=== PATIENT | male | born 1980 | race Caucasian/White ===

== ENCOUNTER 2017-11-08 06:14 | Outpatient (CLI) | payer OTHER ==
[2017-11-08 07:13] LABS: ANION GAP 7 (6-14); BLOOD UREA NITROGEN 13 mg/dL (8-26); CALCIUM 9.4 mg/dL (8.5-10.1); CARBON DIOXIDE 27 mmol/L (21-32); CHLORIDE 105 mmol/L (98-107); GFR 83.2; GLUCOSE 107 mg/dL (70-99); POTASSIUM 4.2 mmol/L (3.5-5.1); SODIUM 139 mmol/L (136-145)
[2017-11-08] MEDS ORDERED: IODIXANOL 320 MG/ML 100 ML VIAL. (07:13)
[2017-11-08] MEDS ORDERED: LIDOCAINE 2% 20 ML VIAL. (07:13)
[2017-11-08 07:28] LABS: HEMATOCRIT 45.3 % (39.0-53.0); HEMOGLOBIN 15.1 g/dL (13.0-17.5); MEAN CORPUSCULAR HEMOGLOBIN 27 pg (25-35); MEAN CORPUSCULAR HGB CONC 33 g/dL (31-37); MEAN CORPUSCULAR VOLUME 80 fL (79-100); PLATELET COUNT 217 x10^3/uL (140-400); RED BLOOD COUNT 5.64 x10^6/uL (4.30-5.70); RED CELL DISTRIBUTION WIDTH 16.4 % (11.5-14.5); WHITE BLOOD COUNT 4.9 x10^3/uL (4.0-11.0)
[2017-11-08 07:47] LABS: INR 1.1 (0.8-1.1)
[2017-11-08] MEDS ORDERED: NITROGLYCERIN 200 MCG/2 ML SYRINGE FOR CATH/VASC LAB. (08:00)
[2017-11-08] MEDS ORDERED: MIDAZOLAM HCL/PF 5 MG/5 ML VIAL. (08:00)
[2017-11-08] MEDS ORDERED: fentaNYL PF VIAL 250 MCG/5 ML VIAL (08:00)
[2017-11-08] MEDS ORDERED: HEPARIN for IV BOLUS 10,000 UNIT/10 ML VIAL. (08:00)
[2017-11-08] MEDS ORDERED: VERAPAMIL 5 MG/2 ML VIAL. (08:00)
[2017-11-08] MEDS: MIDAZOLAM HCL/PF 5 MG/5 ML VIAL. IV (08:51)
[2017-11-08] MEDS: LIDOCAINE 2% 20 ML VIAL. IJ (08:51)
[2017-11-08] MEDS: IODIXANOL 320 MG/ML 100 ML VIAL. IART (08:51)
[2017-11-08] MEDS: NITROGLYCERIN 200 MCG/2 ML SYRINGE FOR CATH/VASC LAB. IART (08:51)
[2017-11-08] MEDS: fentaNYL PF VIAL 250 MCG/5 ML VIAL IV (08:52)
[2017-11-08] MEDS: VERAPAMIL 5 MG/2 ML VIAL. IART (08:52)
[2017-11-08] MEDS: HEPARIN for IV BOLUS 10,000 UNIT/10 ML VIAL. IART (08:53)
[2017-11-08] MEDS ORDERED: IV 1/2 NORMAL SALINE 1,000 ML IV (09:06)
== END 2017-11-08 11:45 | disposition home or self-care (01) ==
LOC: CCL 06:14
DX: I42.9 Cardiomyopathy, unspecified (principal); E78.00 Pure hypercholesterolemia, unspecified; I10 Essential (primary) hypertension; Z79.82 Long term (current) use of aspirin; Z79.899 Other long term (current) drug therapy
CPT/HCPCS: 36415; 80048; 85027; 85610; 93458; 99152; 99153; C1769; C1892; J1644; J2001; J2250; J3010; J3490

== ENCOUNTER → 2017-11-10 | Outpatient (CLI) | payer OTHER ==
[2017-11-08 11:15] VITALS: BP 163/83
[~2017-11-10] MED LIST: ASPI-630 PO; FURO40TA4 PO; LABE200T4 PO; LISI-334 PO
--- NOTE | 2017-11-10 11:41 | RAD ---
MR#: [id number] Date of Study: 11/10/2017 Ordering Physician: VIVIAN ELENA, Referring Physician: VIVIAN ELENA, Tech: Kolton Cheatham MBA, RDMS, RVT, RDCS, RTR APPROVED REPORT Patient Location : OUT-PATIENT Indications venous insufficiency Greater Saphenous Veins (GSV) Significant venous relux noted in the RIGHT GSV at the following levels : Superficial Femoral Junctio n Findings Grayscale images of the bilateral saphenofemoral junctions and limited grayscale images of the greate r and lesser saphenous veins do not reveal any obvious evidence of thrombus. The right great saphenous vein measures 7.5 mm in maximum diameter and has mild reflux with a reflux time of 2.6 seconds. The left great saphenous vein does not show any evidence of reflux and measures approximately 8 mm. The bilateral lesser saphenous veins do not show any evidence of reflux. Critical Notification Critical Value: No <Conclusion> Positive for reflux in the right great saphenous vein at 2.6 seconds. Otherwise unremarkable Signed by : Gennaro Bah, Electronically Approved : 11/10/2017 11:40:29
--- NOTE | 2017-11-10 11:43 | RAD ---
MR#: [id number] Date of Study: 11/10/2017 Ordering Physician: VIVIAN ELENA, Referring Physician: VIVIAN ELENA, Tech: Kolton Cheatham MBA, RDMS, RVT, RDCS, RTR APPROVED REPORT Bilateral Lower Extremity Venous Study for DVT Patient Location: OUT-PATIENT Indications venous insufficiency Vein Imaging (Right) CFV (R): Compressible SFJ (R): Compressible FEM (R): Compressible POP (R): Compressible DFV (R): Compressible PTV (R): Spontaneous GSV (R): Spontaneous Peroneals (R): Spontaneous Vein Imaging (Left) CFV (L): Compressible SFJ (L): Compressible, Compressible FEM (L): Compressible POP (L): Compressible DFV (L): Compressible PTV (L): Spontaneous GSV (L): Spontaneous Peroneals (L): Spontaneous Doppler Evaluation (Right) CFV (R): Spontaneous POP (R):Spontaneous Doppler Evaluation (Left) CFV (L):Spontaneous POP (L):Spontaneous Findings The bilateral lower extremity deep veins were evaluated for thrombus with color Doppler, spectral and grayscale images. On the right the grayscale images of the common femoral, superficial femoral and popliteal veins do n ot demonstrate any evidence of thrombus and these veins appear to be compressible. The below-knee vei ns were not well visualized but grossly appear to be compressible. Spectral imaging and color Doppler do not reveal any evidence of obstruction to flow with normal respirophasic variation above the knee . Below the knee there is spontaneous flow noted. On the left, the grayscale images of the common femoral, superficial femoral and popliteal veins do n ot demonstrate any evidence of thrombus and these veins appear to be compressible. The below-knee vei ns again were not well visualized but grossly appear to be compressible. Spectral imaging and color D oppler do not reveal any evidence of obstruction to flow with normal respirophasic variation above th e knee. The below-knee veins demonstrate spontaneous flow. Critical Notification Critical Value: No <Conclusion> No evidence of DVT in the bilateral lower extremities. Technically difficult study. Signed by : Gennaro Bah, Electronically Approved : 11/10/2017 11:41:37
== END | disposition home or self-care (01) ==
LOC: US 07:36
PROVIDERS: ATTEND Internal Medicine Cardiovascular Disease
DX: I87.2 Venous insufficiency (chronic) (peripheral) (principal); I10 Essential (primary) hypertension; E78.5 Hyperlipidemia, unspecified; Z79.82 Long term (current) use of aspirin
CPT/HCPCS: 93970

== ENCOUNTER 2018-05-28 15:08 | Inpatient (IN) | payer BC ==
[~2018-05-28] VITALS: Ht 182.9 cm; Wt 190.1 kg
[~2018-05-28 15:08] MED LIST changes: +LISI-130 PO; +MULT-460 PO; +TAMS0.4C97 PO
--- NOTE | 2018-05-28 18:10 | NUR ---
1809 Patient placed in room 416 as a transfer from [facility] ED via EMS. I called Dr Ruano for orders and gave report to incoming night nurse. Dr Ruano aware of pt's VS.
[2018-05-28 19:00] VITALS: BP 159/89
[2018-05-28] MEDS ORDERED: ACETAMINOPHEN 650 MG SUPP.RECT. PR PRN (19:15)
[2018-05-28] MEDS ORDERED: ACETAMINOPHEN 325 MG TABLET. PO PRN (19:15)
[2018-05-28] MEDS ORDERED: PIP/TAZO PER PHARMACY MC PRN (19:15)
[2018-05-28] MEDS ORDERED: ONDANSETRON PF 4 MG/2 ML VIAL. IV PRN (19:15)
[2018-05-28] MEDS: MORPHINE SULFATE 4 MG/ML VIAL. IV PRN (20:24)
[2018-05-28] MEDS: TAMSULOSIN 0.4 MG CAP.ER.24H. PO SCH (20:25)
[2018-05-28] MEDS: IV NORMAL SALINE 1000ML BAG 1,000 ML IV SCH (20:26)
[2018-05-28] MEDS: LABETALOL HCL 200 MG TABLET PO SCH (20:32)
[2018-05-28 23:00] VITALS: BP 138/77
[2018-05-28 23:12] LABS: BILIRUBIN,URINE SMALL (NEG); CLARITY,URINE CLEAR; COLOR,URINE AMBER; NITRITE,URINE NEGATIVE (NEG); PH,URINE 5.5; PROTEIN,URINE 30 mg/dL (NEG-TRACE)
[2018-05-28 23:23] LABS: BACTERIA,URINE 0 /HPF (0-FEW); SQUAMOUS EPITHELIAL CELL,UR FEW /LPF
[2018-05-29] VITALS (16 sets, daily range): BP systolic 99–197; BP diastolic 59–96
[2018-05-29] MEDS: PIPERACILLIN/TAZOBACTAM 3.375 GM in IV NORMAL SALINE 50ML 50 ML IV SCH ×4 (00:12→17:37)
[2018-05-29] MEDS: MORPHINE SULFATE 4 MG/ML VIAL. IV PRN ×2 (00:13→03:52)
[2018-05-29] MEDS ORDERED: OXYC1TAB15 PO (02:34)
[2018-05-29] MEDS: IV NORMAL SALINE 1000ML BAG 1,000 ML IV SCH ×2 (05:50→15:15)
[2018-05-29] MEDS ORDERED: POLYETHYLENE GLYCOL 3350 17 GM PACKET. PO PRN (06:15)
[2018-05-29] MEDS ORDERED: KETOROLAC 15 MG/ML VIAL. IV ONE (06:30)
[2018-05-29] MEDS ORDERED: IOHEXOL 300 MG/ML 100ML VIAL. ONE (07:20)
[2018-05-29] MEDS ORDERED: IV RINGERS,LACTATED 1000ML 1,000 ML IV SCH (08:26)
[2018-05-29] MEDS ORDERED: MORPHINE SULFATE 2 MG/ML VIAL. IV PRN (08:30)
[2018-05-29] MEDS ORDERED: LIDOCAINE 1% PF 2 ML VIAL. ID PRN (08:30)
[2018-05-29] MEDS ORDERED: fentaNYL PF VIAL 100 MCG/2 ML VIAL IV PRN ×2 (08:30)
[2018-05-29] MEDS ORDERED: ONDANSETRON PF 4 MG/2 ML VIAL. IV PRN (08:30)
[2018-05-29] MEDS ORDERED: HYDROmorphone 2 MG/ML VIAL IV PRN (08:30)
[2018-05-29] MEDS ORDERED: PROCHLORPERAZINE 10 MG/2 ML VIAL. IV PRN (08:30)
[2018-05-29] MEDS ORDERED: PROPOFOL 20 ML IV ONE ×2 (09:00→09:44)
[2018-05-29] MEDS ORDERED: KETOROLAC 30 MG/ML INJ FOR OR. INJ ONE (09:00)
[2018-05-29] MEDS ORDERED: ONDANSETRON PF 4 MG/2 ML VIAL. ONE (09:00)
[2018-05-29] MEDS ORDERED: LIDOCAINE 2% PF Vial for OR 5 ML VIAL. ONE (09:00)
[2018-05-29] MEDS ORDERED: DEXAMETHASONE SOD PHOS 20 MG/5 ML VIAL. ONE (09:00)
--- NOTE | 2018-05-29 09:00 | PDOC2 ---
UROLOGY CONSULT Date of Consult Date of Consult DATE: 05/29/18 TIME: 08:53 Reason for Consult Reason for Consult: let ureter stone Identification/Chief Complaint Chief Complaint left flank pain Source Source: Chart review, Patient History of Present Illness Reason for Visit: 37 yo male admitted for left flank pain. 3-4 mm distal left ureter stone noted on CT scan 05/24/18 and 05/28/18. He was admitted 05/24 and attempted oral pain med control. HIs pain recurred and he was transferred again from [facility] for ureteral stone management. Pain is also in LLQ. No hematuria or dysuria. I reviewed his CT scan images- also has two 3-5 mm stones in left kidney, as well are bilateral parapelvic cysts. Past Medical History Cardiovascular: HTN Pulmonary: No pertinent hx Current Medications Current Medications Current Medications Acetaminophen (Tylenol Supp) 650 mg PRN Q6HRS PRN AL MILD PAIN / TEMP; Start at 19:15 Acetaminophen (Tylenol) 650 mg PRN Q6HRS PRN PO FEVER; Start 05/28/18 at 19:15 Fentanyl Citrate (Fentanyl 2ml Vial) 25 mcg PRN Q5MIN PRN IV MILD PAIN; Start 05/29/18 at 08:30; Stop 05/30/18 at 08:29 Fentanyl Citrate (Fentanyl 2ml Vial) 50 mcg PRN Q5MIN PRN IV MODERATE TO SEVERE PAIN; Start 05/29/18 at 08:30; Stop 05/30/18 at 08:29 Hydromorphone HCl (Dilaudid) 0.5 mg PRN Q10MIN PRN IV SEV PAIN, Second choice; Start 05/29/18 at 08:30; Stop 05/30/18 at 08:29 Iohexol (Omnipaque 300 Mg/ml) 100 ml STK-MED ONCE .ROUTE ; Start 05/29/18 at 07: 20; Stop 05/29/18 at 07:21; Status DC Ketorolac Tromethamine (Toradol 15mg Vial) 15 mg 1X ONCE IV Last administered on 05/29/18at 06:14; Start 05/29/18 at 06:30; Stop 05/29/18 at 06:31; Status DC Labetalol HCl (Trandate) 200 mg BID PO Last administered on 05/28/18at 20:32; Start 05/28/18 at 21:00 Lidocaine HCl (Xylocaine-Mpf 1% 2ml Vial) 2 ml 1X PRN PRN ID IV START; Start at 08:30; Stop 05/30/18 at 08:29 Morphine Sulfate (Morphine Sulfate) 1 mg PRN Q10MIN PRN IV SEVERE PAIN; Start 05/29/18 at 08:30; Stop 05/30/18 at 08:29 Morphine Sulfate (Morphine Sulfate) 4 mg PRN Q4HRS PRN IV MODERATE TO SEVERE PAIN Last administered on 05/29/18at 03:52; Start 05/28/18 at 19:15 Ondansetron HCl (Zofran) 4 mg PRN Q6HRS PRN IV NAUSEA/VOMITING; Start 05/28/18 at 19:15 Ondansetron HCl (Zofran) 4 mg PRN Q6HRS PRN IV NAUSEA/VOMITING; Start 05/29/18 at 08:30; Stop 05/30/18 at 08:29 Piperacillin Sod/ Tazobactam Sod (Zosyn Per Pharmacy) 1 each PRN DAILY PRN MC SEE COMMENTS; Start 05/28/18 at 19:15 Piperacillin Sod/ Tazobactam Sod 3.375 gm/Sodium Chloride 50 ml @ 100 mls/hr Q6HRS IV Last administered on 05/29/18at 05:51; Start 05/29/18 at 00:00 Polyethylene Glycol (miraLAX PACKET) 17 gm PRN DAILY PRN PO CONSTIPATION 1ST CHOICE; Start 05/29/18 at 06:15 Prochlorperazine Edisylate (Compazine) 5 mg PACU PRN PRN IV NAUSEA, MRX1; Start 05/29/18 at 08:30; Stop 05/30/18 at 08:29 Ringer's Solution 1,000 ml @ 30 mls/hr Q24H IV ; Start 05/29/18 at 08:26; Stop 05/29/18 at 20:25 Sodium Chloride 1,000 ml @ 100 mls/hr Q10H IV Last administered on 05/29/18at 05:50; Start 05/28/18 at 19:15 Tamsulosin HCl (Flomax) 0.4 mg QHS PO Last administered on 05/28/18at 20:25; Start 05/28/18 at 21:00 Allergies Allergies: Coded Allergies: No Known Drug Allergies (Unverified , 05/13/13) ROS Review Of Systems: Except as in HPI: CONSTITUTIONAL: No fever or chills EYES: No recent changes SKIN: No rash or itching CARDIOVASCULAR: No chest pain, syncope, palpitations, or edema RESPIRATORY: No SOB or cough GASTROINTESTINAL: No nausea, vomiting or abdominal pain NEUROLOGICAL: No headaches or weakness ENDOCRINE: No cold or heat intolerance GENITOURINARY: No urgency or frequency of urination MUSCULOSKELETAL: No back pain or joint pain LYMPHATICS: No enlarged lymph nodes PSYCHIATRIC: No anxiety or depression Physical Exam Physical Exam: General: Pleasant, no acute distress, well groomed Eyes: conjunctiva anicteric, eyes full range of motion ENT: moist oral mucosa, normal dentition Neck: Trachea midline, no masses Respiratory: unlabored breathing, not using accessory muscles, no crackles or wheezes Cardiovascular: Regular rate and rhythm, no peripheral edema Abdomen: mildlt tender LLQ, nondistended, no hepatosplenomegaly, no masses. Back: no CVA tenderness Skin: no rashes or skin lesions on visualized skin Psych: normal mood, affect. Alert and oriented x 3. Vitals VITALS Vital Signs Date Time Temp Pulse Resp B/P (MAP) Pulse Ox O2 Delivery O2 Flow Rate FiO2 05/29/18 08:30 98.4 84 16 164/77 97 Room Air 98.4 Labs Labs Laboratory Tests Test 05/28/18 21:15 Urine Collection Type Unknown Urine Color Vanda Urine Clarity Clear Urine pH 5.5 Urine Specific [place] 1.025 Urine Protein 30 mg/dL (NEG-TRACE) Urine Glucose (UA) Negative mg/dL (NEG) Urine Ketones (Stick) 40 mg/dL (NEG) Urine Blood Negative (NEG) Urine Nitrite Negative (NEG) Urine Bilirubin Small (NEG) Urine Urobilinogen Dipstick 1.0 mg/dL (0.2 mg/dL) Urine Leukocyte Esterase Negative (NEG) Urine RBC 1-2 /HPF (0-2) Urine WBC 1-4 /HPF (0-4) Urine Squamous Epithelial Cells Few /LPF Urine Bacteria 0 /HPF (0-FEW) Urine Mucus Mod /LPF Laboratory Tests Test 05/28/18 21:15 Urine Collection Type Unknown Urine Color Vanda Urine Clarity Clear Urine pH 5.5 Urine Specific [place] 1.025 Urine Protein 30 mg/dL (NEG-TRACE) Urine Glucose (UA) Negative mg/dL (NEG) Urine Ketones (Stick) 40 mg/dL (NEG) Urine Blood Negative (NEG) Urine Nitrite Negative (NEG) Urine Bilirubin Small (NEG) Urine Urobilinogen Dipstick 1.0 mg/dL (0.2 mg/dL) Urine Leukocyte Esterase Negative (NEG) Urine RBC 1-2 /HPF (0-2) Urine WBC 1-4 /HPF (0-4) Urine Squamous Epithelial Cells Few /LPF Urine Bacteria 0 /HPF (0-FEW) Urine Mucus Mod /LPF Assessment/Plan Assessment/Plan Left ureteral stone: he is requesting surgical intervention. Will proceed with left ureteroscopy and laser of ureter stone. Will also attempt to laser the kidney stones. He understands that he might need a temporary ureteral stent. Risks of the surgery discussed including bleeding, infection, pain, injury to bladder, ureter, kidney. Alternatives of ESWL or trial of stone passage discussed. All questions answered. Proceed with surgery later today. FRANK POTTS MD May 29, 2018 09:00
[2018-05-29] MEDS ORDERED: fentaNYL PF VIAL 100 MCG/2 ML VIAL ONE (09:19)
[2018-05-29] MEDS ORDERED: SEVOFLURANE 61 TO 120 MINUTES. IH ONE (09:44)
--- NOTE | 2018-05-29 10:05 | PDOC4 ---
OPERATIVE NOTE Date: Date: May 29, 2018 Pre-Op Diagnosis: left ureter stone left kidney stone Post-Op Diagnosis: same Procedure Performed: 1) left ureteroscopy with basket of ureter stone 2) left ureteroscopy with laser of kidney stones 3) left retrograde pyelogram Surgeon: Frank Potts MD Anesthesia Type: general Blood Loss: 0 Specimans Obtained: left ureter stone Findings: left distal ureter stone. left kidney stones Complications: none Operative Note: see dictation FRANK POTTS MD May 29, 2018 10:05
--- NOTE | 2018-05-29 10:24 | OP ---
DATE OF SURGERY: 05/29/2018 SURGEON: Frank Potts MD TURBINE MEASUREMENTS ENGINEER: None. PREOPERATIVE DIAGNOSES: 1. Left ureter stone. 2. Left kidney stones. POSTOPERATIVE DIAGNOSES: 1. Left ureter stone. 2. Left kidney stones. PROCEDURES PERFORMED: 1. Left ureteroscopy with basket of ureter stone. 2. Left ureteroscopy with laser of kidney stones. 3. Left retrograde pyelogram. ANESTHESIA TYPE: General. INDICATIONS: This is a 37-year-old male who was readmitted for left renal colic due to a ureteral stone. After discussion of risks, benefits and alternatives, he agreed to the above procedure. DESCRIPTION OF PROCEDURE: Informed consent was obtained. The patient was taken to the operating room where general anesthesia was induced. He was placed in the dorsal lithotomy position, sterilely prepped and draped. A timeout was performed. A rigid cystoscope was advanced through the urethra and into the bladder. The urethral meatus needed to be dilated due to narrowing and this was easily dilated up to 26 [place]. A stone was seen out of the left ureteral orifice. An attempt to grasp the stone and remove it was unsuccessful, so a guidewire was advanced alongside the stone and then a rigid ureteroscope was advanced up to the stone in the distal left ureter, where it was grasped with a basket and then removed intact without any resistance or difficulty. Next, a flexible ureteroscope was advanced over the wire into the left renal pelvis without difficulty. Contrast was injected through the scope and this demonstrated mild left hydronephrosis. The renal calices were inspected and there were 3 stones noted, the largest was in the upper pole and was approximately 5 mm in size. Each of the stones was then fragmented with a holmium laser into tiny fragments, smaller than 1 mm. The largest stone fragment was grasped with the basket and then easily extracted without difficulty. The patient was then awakened and taken to the recovery room in stable condition. BLOOD LOSS: None. COMPLICATIONS: None. SPECIMEN: Left ureter stone. FRANK POTTS MD DR: LATISHA/hernan JOB#: [id number] / [id number]
[2018-05-29 12:13] LABS: CREATININE 1.7 mg/dL (0.7-1.3); GFR 45.1; HEMATOCRIT 35.6 % (39.0-53.0); HEMOGLOBIN 11.7 g/dL (13.0-17.5); POTASSIUM 5.4 mmol/L (3.5-5.1); RED BLOOD COUNT 4.16 x10^6/uL (4.30-5.70); RED CELL DISTRIBUTION WIDTH 13.8 % (11.5-14.5); WHITE BLOOD COUNT 11.4 x10^3/uL (4.0-11.0)
[2018-05-29 12:19] LABS: ALBUMIN 2.6 g/dL (3.4-5.0); ALBUMIN/GLOBULIN RATIO 0.5 (1.0-1.7); TOTAL BILIRUBIN 0.9 mg/dL (0.2-1.0); TOTAL PROTEIN 7.7 g/dL (6.4-8.2)
[2018-05-29] MEDS: LABETALOL HCL 200 MG TABLET PO SCH ×2 (13:28→20:30)
[2018-05-29] MEDS: LACTOBACILLUS RHAMNOSUS GG 1 CAPSULE. PO SCH (20:29)
[2018-05-29] MEDS: TAMSULOSIN 0.4 MG CAP.ER.24H. PO SCH (20:30)
[2018-05-30] MEDS: PIPERACILLIN/TAZOBACTAM 3.375 GM in IV NORMAL SALINE 50ML 50 ML IV SCH ×4 (00:22→18:00)
[2018-05-30] MEDS: IV NORMAL SALINE 1000ML BAG 1,000 ML IV SCH (02:30)
[2018-05-30 03:00] VITALS: BP 155/89
[2018-05-30 07:00] VITALS: BP 182/89
[2018-05-30] MEDS: LACTOBACILLUS RHAMNOSUS GG 1 CAPSULE. PO SCH ×2 (08:47→21:06)
[2018-05-30] MEDS: LABETALOL HCL 200 MG TABLET PO SCH ×3 (08:47→21:06)
[2018-05-30 09:27] LABS: BASO % 0 % (0-3); EOS % 0 % (0-3); HEMATOCRIT 37.4 % (39.0-53.0); HEMOGLOBIN 12.1 g/dL (13.0-17.5); LYMPH # 0.6 x10^3/uL (1.0-4.8); LYMPH % 5 % (24-48); MEAN CORPUSCULAR HEMOGLOBIN 28 pg (25-35); MEAN CORPUSCULAR HGB CONC 32 g/dL (31-37); MEAN CORPUSCULAR VOLUME 86 fL (79-100); MONO # 0.8 x10^3/uL (0.0-1.1); MONO % 6 % (0-9); NEUT # 11.8 x10^3uL (1.8-7.7); NEUT % 89 % (31-73); PLATELET COUNT 389 x10^3/uL (140-400); RED BLOOD COUNT 4.34 x10^6/uL (4.30-5.70); RED CELL DISTRIBUTION WIDTH 14.1 % (11.5-14.5); WHITE BLOOD COUNT 13.2 x10^3/uL (4.0-11.0)
[2018-05-30 09:35] LABS: CALCIUM 8.7 mg/dL (8.5-10.1); CREATININE 1.6 mg/dL (0.7-1.3); GFR 48.4; POTASSIUM 4.2 mmol/L (3.5-5.1)
[2018-05-30] MEDS ORDERED: CEFP200T PO (10:10)
--- NOTE | 2018-05-30 10:12 | PDOC ---
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 Ok otherwise. No dysuria OBJECTIVE Objective Physical Exam: General appearance: Alert and Oriented Head: Normocephalic, without obvious abnormality Eyes: conjunctivae/corneas clear. PERRL, EOM's intact. Fundi benign Back: negative, no CVA pain bilaterally Lungs: Regular respirations, non labored breathing. Abdomen: soft, tender LLQ, otherwise non tender. Obese. Vital Signs Vital Signs Date Time Temp Pulse Resp B/P (MAP) Pulse Ox O2 Delivery O2 Flow Rate FiO2 05/30/18 08:47 79 182/89 05/30/18 07:00 98.3 79 18 182/89 (120) 95 Room Air 98.3 05/30/18 03:00 97.5 80 18 155/89 (111) 95 Room Air 97.5 05/29/18 23:00 98.1 82 18 162/91 (114) 94 Room Air 98.1 05/29/18 20:30 82 155/86 05/29/18 19:00 98.2 82 18 155/86 (109) 95 Room Air 98.2 05/29/18 15:00 82 165/79 (107) 92 Room Air 05/29/18 13:28 99 157/83 (107) 88 Room Air 05/29/18 13:28 80 197/89 05/29/18 12:28 80 197/89 (125) 94 Room Air 05/29/18 12:13 77 185/77 (113) 89 Room Air 05/29/18 11:58 78 159/96 (117) 95 Room Air 05/29/18 11:42 76 146/76 (99) 92 Room Air 05/29/18 11:39 76 155/77 (103) Room Air 05/29/18 11:13 98.4 74 20 163/74 95 Nasal Cannula 2 98.4 05/29/18 11:10 87 114/71 (85) 95 Nasal Cannula 2.0 05/29/18 11:08 84 101/59 (73) 97 Nasal Cannula 2.0 05/29/18 11:06 94 99/64 (76) 99 Nasal Cannula 2.0 05/29/18 11:03 104 130/65 (86) 97 Nasal Cannula 2.0 05/29/18 10:58 98.4 78 20 170/74 95 Nasal Cannula 2 98.4 05/29/18 10:58 67 144/92 (109) 98 Nasal Cannula 2.0 05/29/18 10:43 99.5 77 20 193/93 100 Room Air 99.5 05/29/18 10:28 98.4 82 18 174/89 100 Simple Mask 10 98.4 05/29/18 10:25 Mask 10 05/29/18 10:13 99.5 80 16 144/75 100 Simple Mask 10 99.5 I & O Intake and Output 05/30/18 06:59 Intake Total 2000 ml Output Total 1150 ml Balance 850 ml Intake Oral 1150 ml IV Total 850 ml Output Urine Total 1150 ml # Voids 1 PHYSICAL EXAM Physical Exam Physical Exam: General appearance: Alert and Oriented Head: Normocephalic, without obvious abnormality Eyes: conjunctivae/corneas clear. PERRL, EOM's intact. Fundi benign Back: negative, no CVA pain bilaterally Lungs: Regular respirations, non labored breathing. Abdomen: soft, tender LLQ, otherwise non tender. Obese. ASSESSMENT/PLAN Assessment/Plan Recommend he stay one more night due to elevated WBC. Labs in the am. Continue pain control, antibiotics Will re-evaluate in the morning, possible discharge tomorrow. Problems: (1) Calculus of left kidney (2) Calculus of proximal left ureter COMMENT Lab Laboratory Tests Test 05/29/18 11:55 05/30/18 08:40 05/30/18 09:10 White Blood Count 11.4 x10^3/uL (4.0-11.0) 13.2 x10^3/uL (4.0-11.0) Red Blood Count 4.16 x10^6/uL (4.30-5.70) 4.34 x10^6/uL (4.30-5.70) Hemoglobin 11.7 g/dL (13.0-17.5) 12.1 g/dL (13.0-17.5) Hematocrit 35.6 % (39.0-53.0) 37.4 % (39.0-53.0) Mean Corpuscular Volume 86 fL (79-100) 86 fL (79-100) Mean Corpuscular Hemoglobin 28 pg (25-35) 28 pg (25-35) Mean Corpuscular Hemoglobin Concent 33 g/dL (31-37) 32 g/dL (31-37) Red Cell Distribution Width 13.8 % (11.5-14.5) 14.1 % (11.5-14.5) Platelet Count 318 x10^3/uL (140-400) 389 x10^3/uL (140-400) Sodium Level 138 mmol/L (136-145) 142 mmol/L (136-145) Potassium Level 5.4 mmol/L (3.5-5.1) 4.2 mmol/L (3.5-5.1) Chloride Level 102 mmol/L (98-107) 105 mmol/L (98-107) Carbon Dioxide Level 25 mmol/L (21-32) 26 mmol/L (21-32) Anion Gap 11 (6-14) 11 (6-14) Blood Urea Nitrogen 21 mg/dL (8-26) 20 mg/dL (8-26) Creatinine 1.7 mg/dL (0.7-1.3) 1.6 mg/dL (0.7-1.3) Estimated GFR (Cockcroft-Gault) 45.1 48.4 BUN/Creatinine Ratio 12 (6-20) Glucose Level 120 mg/dL (70-99) 144 mg/dL (70-99) Calcium Level 9.0 mg/dL (8.5-10.1) 8.7 mg/dL (8.5-10.1) Total Bilirubin 0.9 mg/dL (0.2-1.0) Aspartate Amino Transf (AST/SGOT) 12 U/L (15-37) Alanine Aminotransferase (ALT/SGPT) 10 U/L (16-63) Alkaline Phosphatase 79 U/L (46-116) Total Protein 7.7 g/dL (6.4-8.2) Albumin 2.6 g/dL (3.4-5.0) Albumin/Globulin Ratio 0.5 (1.0-1.7) Neutrophils (%) (Auto) 89 % (31-73) Lymphocytes (%) (Auto) 5 % (24-48) Monocytes (%) (Auto) 6 % (0-9) Eosinophils (%) (Auto) 0 % (0-3) Basophils (%) (Auto) 0 % (0-3) Neutrophils # (Auto) 11.8 x10^3uL (1.8-7.7) Lymphocytes # (Auto) 0.6 x10^3/uL (1.0-4.8) Monocytes # (Auto) 0.8 x10^3/uL (0.0-1.1) Eosinophils # (Auto) 0.0 x10^3/uL (0.0-0.7) Basophils # (Auto) 0.0 x10^3/uL (0.0-0.2) FRANK POTTS MD 05/30/18 1506: ASSESSMENT/PLAN Assessment/Plan Agree with assessment and plan. NING LI APRN May 30, 2018 10:12 FRANK POTTS MD May 30, 2018 15:06
[2018-05-30] MEDS: MORPHINE SULFATE 4 MG/ML VIAL. IV PRN ×2 (10:17→14:39)
--- NOTE | 2018-05-30 10:21 | HP ---
ADMIT DATE: HISTORY OF PRESENT ILLNESS: The patient is a 37-year-old male patient who presented to [facility] with severe left lower quadrant pain without any hematuria or dysuria. His CT scan showed he has two 3-5 mm stones in the left kidney as well as bilateral parapelvic cyst and has also 3-4 mm distal left ureteral stone noted on CT scan done on 05/24/2018 and again on 05/28/2018. He was admitted on 05/24/2018 and attempted oral pain control. His pain has recurred and therefore he was transferred back again here to continue with pain management, IV fluid and antiemetic, and to consult the urologist. PAST MEDICAL HISTORY: Significant for hypertension as well as morbid obesity. PAST SURGICAL HISTORY: Significant for tonsillectomy. ALLERGIES: He has no known drug allergies. MEDICATIONS: He is currently on following medications: He is on labetalol 200 mg twice a day, lisinopril 40 mg once a day, aspirin 81 mg once a day, furosemide 40 mg once a day, oxycodone/APAP 5/325 one tablet every 6 hours and multivitamin 1 tablet once a day. FAMILY HISTORY: He has one sister older and healthy. His brother at age of 28 because of drug overdose. His mother at 52 because of leukemia. His father is still alive at the age of 69. He is known to have hypertension, hyperlipidemia. SOCIAL HISTORY: He is single, no children. He does not smoke, drink alcohol or use recreational drugs. He works at the [employer]. REVIEW OF SYSTEMS: As per history of present illness. PHYSICAL EXAMINATION: GENERAL: On arrival, the patient looked well and was clearly in no apparent respiratory distress. No pallor, jaundice, cyanosis, or thyromegaly. No jugular venous distension. No lymphedema. VITAL SIGNS: His heart rate was 98, blood pressure 159/89, temperature was 99.1, respiratory rate was 18 and oxygen saturation was 94% on room air. HEAD, EYES, EARS, NOSE AND THROAT: Showed normocephalic, atraumatic. NECK: Supple. HEART: Showed normal first and second heart sounds. No gallop or murmur. CHEST: Clear to auscultation. No crepitation or rhonchi. ABDOMEN: Distended, soft, nontender. NEUROLOGIC: He was awake, alert, responding appropriately. All cranial nerves intact. He moves extremities without difficulty, ambulates without assistance or assistive devices. ASSESSMENT AND PLAN: The patient was admitted with a 4 mm distal left ureteral stone noted on the CT scan done on 05/28/2018. We will continue with IV fluid, IV pain medication. I added tamsulosin and I held his lisinopril as his creatinine apparently was high at 1.7 and we have consulted the urologist. Other medical problems include hypertension, morbid obesity and acute kidney injury. His baseline creatinine before was 1.4 mg/dL. HAZEL CRUZ MD DR: JASON/hernan JOB#: [id number] / [id number]
[2018-05-30 10:24] LABS: % BANDS 11 % (0-9); % LYMPHS 7 % (24-48); % MONOS 5 % (0-10); % SEGS 77 % (35-66); PLT ESTIMATE ADEQUATE (ADEQUATE)
[2018-05-30] MEDS ORDERED: oxyCODONE IR 5 MG TABLET PO PRN (10:30)
[2018-05-30 11:00] VITALS: BP 165/87
[2018-05-30] MEDS: amLODIPine BESYLATE 10 MG TABLET PO SCH (12:17)
--- NOTE | 2018-05-30 14:00 | NUR ---
SS following for discharge planning. SS reviewed pt chart. Pt is from home and currently on room air. No discharge needs noted at this time. SS will continue to follow for pending discharge needs.
[2018-05-30 15:00] VITALS: BP 171/87
--- NOTE | 2018-05-30 16:25 | RAD ---
CT of the abdomen and pelvis without contrast, 05/30/2018: HISTORY: Recurrent pain after renal stone removal Noncontrast scans were obtained and compared to a study from 05/28/2018. Both kidneys demonstrate multiple cystic areas centrally which have been shown on a previous CT study from 10/13/2017 to be predominantly due to parapelvic renal cysts. A component of hydronephrosis on the left cannot be excluded particularly in view of the fact that the left ureter remains dilated. A calculus lodged in the distal left ureter near the ureterovesical junction on the study of 05/28/2018 is no longer present and has presumably passed or been removed. There are several small intrarenal calculi within the left renal collecting system. There is moderate left parapelvic and mild perinephric edema similar to that seen on the previous study. In addition to the parapelvic renal cysts there are bilateral low-density cortical renal nodules which are also probably cysts. Accurate internal CT numbers cannot be obtained from these nodules on today's study due to extensive streak artifacts. No intrarenal calculi are evident on the right. The right ureter is not dilated. There is mild streaky right perinephric edema. The bladder is collapsed and poorly defined. The unopacified liver shows no abnormality. A gallstone is again noted in the gallbladder neck. There is no pericholecystic edema. The pancreas is unremarkable. The spleen is of normal size. Aortoiliac calcific plaquing is present without evidence of aneurysm. No abdominal or pelvic adenopathy is seen. Both inguinal rings are dilated. They contain fat and spermatic cord structures without evidence of bowel herniation. The bowel loops are not dilated. No free air or free fluid is evident in the abdomen or pelvis. There is a trace amount of pleural fluid in the posterior gutter on the right. IMPRESSION: 1. The obstructing left ureteral calculus near the UVJ seen on 04/27/2018 is no longer visible and has reportedly been removed. There is residual hydroureter and parapelvic/perinephric edema on the left. 2. Small nonobstructing left intrarenal calculi. 3. Bilateral renal cysts which are quite extensive in the parapelvic regions, obscuring the renal collecting systems. 4. Mild right perinephric edema. 5. Cholelithiasis. PQRS Compliance Statement: One or more of the following individualized dose reduction techniques were utilized for this examination: 1. Automated exposure control 2. Adjustment of the mA and/or kV according to patient size 3. Use of iterative reconstruction technique Electronically signed by: Lexx Faye MD (05/30/2018 4:22 PM) [facility]
--- NOTE | 2018-05-30 18:06 | PATHOLOGY ---
[facility] Accession Number: [id number] . 01 Material submitted: . LEFT URETERAL STONE . 01 Clinical history: . None provided . 02 Diagnosis: Left ureteral stone: - Consistent with calculi. - Specimen is sent out for further processing. - Report pending outside analysis. . LBQ/05/30/2018 . 02 Electronically signed: . Jax Brunson MD, Pathologist NPI- [id number] . 01 Gross description: . . The specimen is received fresh, labeled "Norbert Enrique, left ureteral stone". Received are 2 granado-brown calculi measuring 0.4 x 0.2 cm and 0.7 x 0.5 x 0.3 cm. The specimen is forwarded to sendouts for further processing. (SDY; 05/30/2018) SYU/SYU . 02 Pathologist provided ICD-10: N20.1 . 02 CPT . 031844 Specimen Comment: A courtesy copy of this report has been sent to Specimen Comment: [phone]. Specimen Comment: Report sent to DR CRUZ Performed at: 01 [facility] [address] [facility] [address], [place] [id number] MD Chaka Martin MD Phone: [phone] Performed at: 02 [facility] [address] [place], [place] [id number] MD Jax Brunson MD Phone: [phone]
[2018-05-30 19:00] VITALS: BP 154/71
--- NOTE | 2018-05-30 20:11 | PN ---
DATE: 05/29/2018 SUBJECTIVE: The patient was transferred from [facility] and admitted to [facility] with 4 mm distal left ureteral stone and the patient was started on IV fluid and IV morphine. As he apparently spiked his temperature, we did send blood and urine for culture and sensitivity and I started him on IV Zosyn and he was seen in consultation by the urologist and apparently underwent left ureteroscopy with basket of ureteral stone, left ureteroscopy with laser kidney stones and left retrograde pyelography. Postop day #3, the patient did very well and has had no further abdominal pain. He was started on his diet and tolerated that very well. PHYSICAL EXAMINATION: GENERAL: When I saw him, he looked well and was clearly in no apparent respiratory distress. No pallor, jaundice, cyanosis, or thyromegaly. No jugular venous distension. No lower limb edema. VITAL SIGNS: His heart rate was 77, blood pressure was 170/74, temperature was 98.4, respiratory rate 20, and oxygen saturation was 95% on 2 liters of oxygen by nasal cannula. HEAD, EYES, EARS, NOSE AND THROAT: Normocephalic, atraumatic. NECK: Supple. HEART: Showed normal first and second sounds. No gallop, rub or murmur. CHEST: Clear to auscultation. No crepitation or rhonchi. ABDOMEN: Distended, soft, nontender. No guarding or rigidity. No organomegaly. Hernial orifice intact. Bowel sounds normal. NEUROLOGIC: He was awake, alert, responding appropriately. Cranial nerves intact. He moves extremities without difficulty, ambulates without assistance or assistive devices. LABORATORY DATA: Showed his white cell count to be 11,400, hemoglobin 11.7, hematocrit 35.6, MCV 89 and platelet count of 218,000. His chemistry showed a serum sodium 138, potassium 5.4, chloride 102, bicarbonate 25, anion gap of 11, BUN 21, creatinine 1.7, estimated GFR was 45 mL per minute, his glucose 120, calcium was 9. Total bilirubin, AST, ALT, alkaline phosphatase were normal. Total protein was 7.7, albumin 2.6. His blood cultures are negative. We will continue with IV Zosyn. Continue IV fluids, Flomax and his labetalol. I held his lisinopril because of impaired kidney function. HAZEL CRUZ MD DR: Dax JOB#: [id number] / [id number]
--- NOTE | 2018-05-30 20:24 | PN ---
DATE: 05/30/2018 SUBJECTIVE: The patient is sitting in his chair, complaining of left-sided pain. Denied any nausea or vomiting. Denied any chills, rigors or fever. His lab work showed his white cell count is up to 13,200 and discussion with the nurse practitioner of the urology team, she recommended to keep him for another day. We have already sent blood and urine for culture and he is already on Zosyn. PHYSICAL EXAMINATION: GENERAL: When I examined him, he looked well and was clearly in no apparent respiratory distress. No pallor, jaundice, cyanosis, or thyromegaly. No jugular venous distension. No lower limb edema. VITAL SIGNS: His heart rate was 79, blood pressure was 182/89, temperature was 98.3, respiratory rate was 18 and oxygen saturation was 95%. HEAD, EYES, EARS, NOSE AND THROAT: Showed normocephalic, atraumatic. The rest of clinical examination is stable. His intake was incompletely recorded, output was 875. LABORATORY DATA: Her lab work this morning showed a white cell count of 13,200, hemoglobin 12, hematocrit 37, MCV 86 and platelet count of 389,000. His chemistry showed a serum sodium 142, potassium 4.2, chloride 105, bicarbonate 26, anion gap of 11, BUN 20, creatinine 1.6, estimated GFR was 48 mL per minute. ASSESSMENT: 1. Calculus at the left kidney. 2. Calculus of the proximal left ureter, status post cystoscopy. 3. Left ureteroscopy with basket of ureter stone. 4. Left ureteroscopy with laser of left kidney stones. 5. Left retrograde pyelogram. 6. Hypertension. 7. Morbid obesity. 8. Acute on chronic kidney injury, questionable urinary tract infection. PLAN: I will add amlodipine to control his blood pressure as his creatinine is still high. We will repeat all his lab work tomorrow and decide further management accordingly. HAZEL CRUZ MD DR: JASON/hernan JOB#: [id number] / [id number]
[2018-05-30] MEDS: TAMSULOSIN 0.4 MG CAP.ER.24H. PO SCH (21:06)
[2018-05-30 23:00] VITALS: BP 159/83
[2018-05-31] MEDS: PIPERACILLIN/TAZOBACTAM 3.375 GM in IV NORMAL SALINE 50ML 50 ML IV SCH ×2 (00:03→06:15)
[2018-05-31 03:00] VITALS: BP 162/94
[2018-05-31 07:00] VITALS: BP 157/84
[2018-05-31] MEDS: LABETALOL HCL 200 MG TABLET PO SCH (08:48)
[2018-05-31 08:49] VITALS: BP 157/84
[2018-05-31] MEDS: amLODIPine BESYLATE 10 MG TABLET PO SCH (08:49)
[2018-05-31] MEDS: LACTOBACILLUS RHAMNOSUS GG 1 CAPSULE. PO SCH (08:49)
[2018-05-31 09:32] LABS: HEMOGLOBIN 11.3 g/dL (13.0-17.5); RED BLOOD COUNT 3.96 x10^6/uL (4.30-5.70); RED CELL DISTRIBUTION WIDTH 13.9 % (11.5-14.5); WHITE BLOOD COUNT 7.3 x10^3/uL (4.0-11.0)
[2018-05-31 09:40] LABS: CALCIUM 8.9 mg/dL (8.5-10.1); CREATININE 1.2 mg/dL (0.7-1.3); GFR 67.4; POTASSIUM 3.9 mmol/L (3.5-5.1)
--- NOTE | 2018-05-31 10:20 | PDOC ---
NING LI Latha [employer] 05/31/18 1020: SUBJECTIVE Subjective Patient ready to go home. No fevers all night, pain controlled. OBJECTIVE Objective Physical Exam: General appearance: Alert and Oriented Head: Normocephalic, without obvious abnormality Eyes: conjunctivae/corneas clear. PERRL, EOM's intact. Fundi benign Back: negative, no CVA pain Lungs: Regular respirations, non labored breathing Abdomen: soft, non-tender, obese. No masses, no organomegaly Vital Signs Vital Signs Date Time Temp Pulse Resp B/P (MAP) Pulse Ox O2 Delivery O2 Flow Rate FiO2 05/31/18 08:49 93 157/84 05/31/18 08:48 93 157/84 05/31/18 07:00 98.1 93 20 157/84 (108) 96 Room Air 98.1 05/31/18 03:00 98.3 67 18 162/94 (116) 100 Room Air 98.3 05/30/18 23:00 98.9 86 18 159/83 (108) 94 Room Air 98.9 05/30/18 21:06 75 154/71 05/30/18 19:00 98.7 75 18 154/71 (98) 99 Room Air 98.7 05/30/18 15:10 Room Air 05/30/18 15:00 97.9 85 18 171/87 (115) 99 Room Air 97.9 05/30/18 14:44 Room Air 05/30/18 14:44 84 165/89 05/30/18 14:39 Room Air 05/30/18 12:24 Room Air 05/30/18 12:17 80 165/87 05/30/18 11:00 97.9 80 18 165/87 (113) 96 Room Air 97.9 I & O Intake and Output 05/31/18 07:00 Intake Total 820 ml Output Total 250 ml Balance 570 ml Intake Oral 820 ml Output Urine Total 250 ml # Voids 3 PHYSICAL EXAM Physical Exam Physical Exam: General appearance: Alert and Oriented Head: Normocephalic, without obvious abnormality Eyes: conjunctivae/corneas clear. PERRL, EOM's intact. Fundi benign Back: negative, no CVA pain Lungs: Regular respirations, non labored breathing Abdomen: soft, non-tender, obese. No masses, no organomegaly ASSESSMENT/PLAN Assessment/Plan Patient ready to home and Dr. Quevedo has written orders, Ok from a Urology perspective for him to discharge home. A follow up appointment has been arranged for patient to see Dr. Potts on 06.30.18 at 11 am. Appointment card and new patient paperwork given to patient. All questions answered. Antibiotic cefpodoxine 200 1 BID, total [address] Quevedo, agree. Will sign off at this time but please call questions or changes in patient condition. Problems: (1) Kidney stones COMMENT Lab Laboratory Tests Test 05/31/18 09:05 White Blood Count 7.3 x10^3/uL (4.0-11.0) Red Blood Count 3.96 x10^6/uL (4.30-5.70) Hemoglobin 11.3 g/dL (13.0-17.5) Hematocrit 34.0 % (39.0-53.0) Mean Corpuscular Volume 86 fL (79-100) Mean Corpuscular Hemoglobin 28 pg (25-35) Mean Corpuscular Hemoglobin Concent 33 g/dL (31-37) Red Cell Distribution Width 13.9 % (11.5-14.5) Platelet Count 372 x10^3/uL (140-400) Sodium Level 144 mmol/L (136-145) Potassium Level 3.9 mmol/L (3.5-5.1) Chloride Level 107 mmol/L (98-107) Carbon Dioxide Level 27 mmol/L (21-32) Anion Gap 10 (6-14) Blood Urea Nitrogen 16 mg/dL (8-26) Creatinine 1.2 mg/dL (0.7-1.3) Estimated GFR (Cockcroft-Gault) 67.4 Glucose Level 118 mg/dL (70-99) Calcium Level 8.9 mg/dL (8.5-10.1) FRANK POTTS MD 06/02/18 1408: ASSESSMENT/PLAN Assessment/Plan Agree with assessment and plan. NING LI APRN May 31, 2018 10:20 FRANK POTTS MD Jun 02, 2018 14:08
--- NOTE | 2018-05-31 10:30 | DS ---
DATE OF DISCHARGE: 05/31/2018 HOSPITAL COURSE: The patient is a 37-year-old male patient who was seen again in the Emergency Room of [facility] with abdominal pain and repeat CT scan that he has on 05/28/2018 showed that he has a 3-4 mm distal left ureter stone. He was seen in consultation by Dr. Zamarripa, the urologist, and he underwent left ureteroscopy with basket of ureter stone, left ureteroscopy with laser of kidney stones and left retrograde pyelography. Postoperatively, his white cell count went up to 13,000 and we did actually continue him on IV Zosyn as well as Tylenol. We did panculture him, send blood and urine for culture and sensitivity and decision was made to keep him another 24 hours. PHYSICAL EXAMINATION: GENERAL: When I saw him today, he looked well and was clearly in no apparent distress. He denied any further episode of abdominal pain. No chills, rigors or fever. When I examined him, he looked well, with no pallor, jaundice or cyanosis from thyromegaly. No jugular venous distention. No lower limb edema. VITAL SIGNS: His heart rate was 98, blood pressure was 59/89, temperature was 99.1, respiratory rate was 18 and oxygen saturation was 94%. HEENT: Examination of the head, eyes, ears, nose and throat showed normocephalic, atraumatic. NECK: Supple. HEART: Normal first and second heart sounds. No gallop, rub or murmur. CHEST: Clear to auscultation. No crepitation or rhonchi. ABDOMEN: Distended, soft and nontender. NEUROLOGIC: He was awake, alert and responding appropriately. All cranial nerves intact. He moved extremities without difficulty, ambulated without assistance or assistive devices. His intake over the last 24 hours was 2000, output was 1150. LABORATORY DATA: His white cell count this morning was 7300, hemoglobin 11, hematocrit 34, MCV 86 and platelet count 372,000. His chemistry showed a serum sodium 144, potassium 3.9, chloride 107, bicarbonate 27, anion gap of 10, BUN 16, creatinine 1.2, estimated GFR was 67.4, glucose was 118 and calcium was 8.9. DISCHARGE MEDICATIONS: He was discharged home to continue on Vantin 200 mg twice a day for 7 days, aspirin 81 mg once a day, furosemide 40 mg once a day, labetalol 200 mg twice a day, lisinopril 40 mg once a day, multivitamin with mineral one tablet once a day and oxycodone/APAP 5/325 one tablet every 6 hours. FINAL DISCHARGE DIAGNOSES: 1. Left ureter stone and left kidney stone, status post left ureteroscopy with basket of ureter stones as well as laser of kidney stone. 2. Rxktu-lp-umvjlyt kidney injury, improving. 3. Urinary tract infection, treated with IV Zosyn and was discharged on oral Vantin. 4. Hypertension. 5. Morbid obesity. HAZEL CRUZ MD DR: JASON/hernan JOB#: [id number] / [id number]
--- NOTE | 2018-05-31 11:01 | NUR ---
This nurse went over discharge instructions with patient, discussed follow up, antibiotics, and pain relief. All belongings were collected and returned to this patient. This nurse will continue to monitor.
== END 2018-05-31 11:00 | disposition home or self-care (01) | DRG 660 ==
LOC: 4 NORTH 18:05
PROVIDERS: ADMIT Internal Medicine; ATTEND Internal Medicine
PROC: 0TC78ZZ Extirpation of Matter from Left Ureter, Via Natural or Artificial Opening Endoscopic (ICD-10-PCS; 2018-05-29)
PROC: BT1F1ZZ Fluoroscopy of Left Kidney, Ureter and Bladder using Low Osmolar Contrast (ICD-10-PCS; 2018-05-29)
PROC: 0T7D8ZZ Dilation of Urethra, Via Natural or Artificial Opening Endoscopic (ICD-10-PCS; 2018-05-29)
PROC: 0TC18ZZ Extirpation of Matter from Left Kidney, Via Natural or Artificial Opening Endoscopic (ICD-10-PCS; principal; 2018-05-29 09:00)
DX: N13.6 Pyonephrosis (principal); Z68.43 Body mass index [BMI] 50.0-59.9, adult; N17.9 Acute kidney failure, unspecified; E66.01 Morbid (severe) obesity due to excess calories; I12.9 Hypertensive chronic kidney disease with stage 1 through stage 4 chronic kidney disease, or unspecified chronic kidney disease; N18.9 Chronic kidney disease, unspecified; Z87.442 Personal history of urinary calculi; Z90.49 Acquired absence of other specified parts of digestive tract; Z79.899 Other long term (current) drug therapy; Z80.6 Family history of leukemia; Z82.49 Family history of ischemic heart disease and other diseases of the circulatory system
CPT/HCPCS: 36415; 74176; 76000; 80048; 80053; 81001; 85007; 85025; 85027; 87040; 88300; A7015; C1769; J1100; J1885; J2001; J2270; J2405; J2543; J2704; J3010; J7030; J7120; Q9967

== ENCOUNTER → 2020-02-13 | Outpatient (CLI) | payer BC ==
[~2020-02-13] MED LIST changes: +CEFP200T PO; +OXYC1TAB15 PO
--- NOTE | 2020-02-13 11:19 | RAD ---
EXAM: Bilateral lower extremity venous reflux. HISTORY: Venous insufficiency. TECHNIQUE: Sonographic imaging of the lower extremity veins was performed. COMPARISON: None. FINDINGS: The right greater saphenous vein measures 10.7 mm in caliber with reflux of 2.0 seconds within the proximal thigh, 8 mm in caliber with reflux of 1.2 seconds within the upper mid thigh, 5.1 mm caliber with reflux of 2.1 seconds within the mid thigh, 5.4 mm in caliber with reflux of 1.9 seconds within the distal thigh, 5.2 mm in caliber with reflux of 1.3 seconds within the proximal calf, 4 mm in caliber with reflux of 1.6 seconds within the mid calf and 3.2 mm in caliber with reflux of 1.0 seconds within the distal calf. The left greater saphenous vein measures 11.4 mm in caliber with reflux of 2.2 seconds within the proximal thigh, 7.1 mm in caliber with reflux of 1.3 seconds within the upper mid thigh, 5 mm caliber with reflux of 1.6 seconds within the mid thigh, 3.9 mm in caliber with reflux of 1.2 seconds within the distal thigh, 3.1 mm in caliber with reflux of 1.6 seconds within the proximal calf, 3.2 mm in caliber with reflux of 1.6 seconds within the mid calf and 3.6 mm in caliber with reflux of 2.3 seconds within the distal calf. The right lesser saphenous vein is not seen at the saphenofemoral junction. The right lesser saphenous vein measures 2.6 mm with reflux of 1.3 seconds within the proximal calf, 2.2 mm with reflux of 1.3 seconds within the mid calf and 2.9 mm with reflux of 1.3 seconds within the distal calf. The left lesser saphenous is not seen at the saphenofemoral junction. The left lesser saphenous vein measures 2.8 mm with reflux of 1.3 seconds within the proximal calf, 3.4 mm with reflux of 1.3 seconds within the mid calf, and 2.8 mm with reflux of 1.0 seconds within the distal calf. IMPRESSION: Bilateral greater and lesser saphenous vein caliber measurements and degrees of reflux described in detail above. Electronically signed by: Jazmin Broderick MD (02/13/2020 11:16 AM) [id number]
--- NOTE | 2020-02-13 16:01 | CARD ---
MR#: [id number] Date of Study: 02/13/2020 Ordering Physician: VIVIAN ELENA, Referring Physician: VIVIAN ELENA Tech: Katelin Rojo RDCS APPROVED REPORT EXAM: Two-dimensional and M-mode echocardiogram with Doppler and color Doppler. Other Information Quality : Technically Limited Technically limited study due to body habitus/morbid obesity INDICATION Congestive Heart Failure 2D DIMENSIONS RVDd3.6 (2.9-3.5cm)Left Atrium(2D)4.3 (1.6-4.0cm) IVSd1.2 (0.7-1.1cm)Aortic Root(2D)3.5 (2.0-3.7cm) LVDd6.2 (3.9-5.9cm)LVOT Diameter2.5 (1.8-2.4cm) PWd1.2 (0.7-1.1cm)LVDs4.3 (2.5-4.0cm) FS (%) 30.0 %SV109.6 ml LVEF(%)56.3 (>50%) Aortic Valve AoV Peak Lon.138.9cm/sAoV VTI26.6cm AO Peak GR.7.7mmHgLVOT Peak Lon.125.3cm/s AO Mean GR.5mmHgAVA (VMAX)4.42cm2 ZENOBIA (VTI)4.90cm2 Mitral Valve MV E Fnupwnba35.2cm/sMV DECEL [id number] MV A Yhdktvxe15.5cm/sE/A Ratio0.9 Tricuspid Valve TR P. Feubcvhz544ne/sRAP ZPVGDESS0gmYw TR Peak Gr.61ypAgKBJH85zsZt Pulmonary Vein S1 Ztosydzx55.7cm/sD2 Qyhiddpf50.6cm/s LEFT VENTRICLE The left ventricle is normal size. There is mild concentric left ventricular hypertrophy. The left ve ntricular systolic function is normal and the ejection fraction is within normal range. The Ejection Fraction is 55-60%. There is normal LV segmental wall motion. Transmitral Doppler flow pattern is Gra de I-abnormal relaxation pattern. RIGHT VENTRICLE The right ventricle is normal size. The right ventricular systolic function is normal. ATRIA The left atrium is mildly dilated. The right atrium is mildly dilated. The interatrial septum is inta ct with no evidence for an atrial septal defect or patent foramen ovale as noted on 2-D or Doppler im aging. AORTIC VALVE The aortic valve is not well visualized. Doppler and Color Flow revealed no significant aortic regurg itation. There is no significant aortic valvular stenosis. MITRAL VALVE The mitral valve is normal in structure and function. There is no evidence of mitral valve prolapse. There is no mitral valve stenosis. Doppler and Color Flow revealed no mitral valve regurgitation note d. TRICUSPID VALVE The tricuspid valve is normal in structure and function. Doppler and Color Flow revealed trace tricus pid regurgitation. The PA pressure was estimated at 36 mmHg. There is no tricuspid valve stenosis. PULMONIC VALVE The pulmonic valve is not well visualized. Doppler and Color Flow revealed no pulmonic valvular regur gitation. There is no pulmonic valvular stenosis. GREAT VESSELS The aortic root is normal in size. The ascending aorta is not well seen. The IVC is normal in size an d collapses >50% with inspiration. PERICARDIAL EFFUSION There is no evidence of significant pericardial effusion. Critical Notification Critical Value: No <Conclusion> The left ventricle is normal size. The left ventricular systolic function is normal and the ejection fraction is within normal range. The Ejection Fraction is 55-60%. There is mild concentric left ventricular hypertrophy. Doppler and Color Flow revealed no significant aortic regurgitation. There is no significant aortic valvular stenosis. Doppler and Color Flow revealed no mitral valve regurgitation noted. Doppler and Color Flow revealed trace tricuspid regurgitation. The PA pressure was estimated at 36 mmHg. Signed by : Brennon Romo MD Electronically Approved : 02/13/2020 16:00:57
== END ==
LOC: ECHO 08:46
PROVIDERS: ATTEND Internal Medicine Cardiovascular Disease
DX: I87.2 Venous insufficiency (chronic) (peripheral) (principal); I51.7 Cardiomegaly
CPT/HCPCS: 93306; 93970

== ENCOUNTER 2020-05-04 07:13 | Inpatient (IN) | payer BC ==
[~2020-05-04] VITALS: Ht 182.9 cm; Wt 167.0 kg
--- NOTE | 2020-05-04 07:26 | PHYS DOC ---
Past Medical History Past Medical History: Hypertension Additional Past Medical Histor: chf, kidney stones, hernia Past Surgical History: Tonsillectomy Additional Past Surgical Histo: cath (in 2018?) Smoking Status: Never Smoker Alcohol Use: Occasionally Drug Use: None General Adult EDM: Chief Complaint: CHEST PAIN HPI: HPI: 39 yo M with cp that started yesterday. Pain is sharp and shooting. It does radiate to his back. It comes and goes. Without alleviating or exacerbating factors. He has a history of heart failure and is on Lasix and has medications for blood pressure. He reports having a heart cath 2 years ago that was reportedly "normal". He denies unilateral leg swelling hemoptysis recent surgery or immobilization. He denies history of DVT or PE. He does not have a family history of heart disease. He has never smoked. He has high blood pressure high cholesterol. He denies diabetes. Review of systems negative for abdominal pain vomiting diaphoresis fevers chills. He denies cough. Negative for nuchal rigidity or headache. All other review of systems negative. ED course: 39-year-old male presenting with chest pain. EKG obtained and reviewed by myself shows sinus rhythm with a regular rate. ST segments congruent. Not suggestive of acute ischemia. Chest x-ray and blood work ordered. On arrival patient is afebrile with a normal heart rate. Pulse ox within normal limits. Chest x-ray shows mid and bibasilar opacities likely atelectasis versus early infiltrates or a viral pneumonia. CBC shows a normal white blood cell count. Hemoglobin 12.7. Troponin within normal limits. Procalcitonin within normal limits. D-dimer within normal limits. Urine analysis unremarkable. Covid test ordered. proBNP is elevated. We will admit the patient for IV diuretics and pending Covid test. I spoke to the hospitalist who accepts patient for admission. Heart Score: Risk Factors: Risk Factors: DM, Current or recent (<one month) smoker, HTN, HLP, family history of CAD, obesity. Risk Scores: Score 0 - 3: 2.5% MACE over next 6 weeks - Discharge Home Score 4 - 6: 20.3% MACE over next 6 weeks - Admit for Clinical Observation Score 7 - 10: 72.7% MACE over next 6 weeks - Early Invasive Strategies Allergies: Allergies: Allergies Coded Allergies Type Severity Reaction Last Updated Verified No Known Drug Allergies 05/13/13 No Physical Exam: PE: Constitutional: Well developed, well nourished, no acute distress, non-toxic appearance. [] HENT: Normocephalic, atraumatic, bilateral external ears normal, oropharynx moist, no oral exudates, nose normal. [] Eyes: PERRLA, EOMI, conjunctiva normal, no discharge. [] Neck: Normal range of motion, no tenderness, supple, no stridor. [] Cardiovascular:Heart rate regular rhythm, no murmur [] Lungs & Thorax: Bilateral breath sounds clear to auscultation [] Abdomen: Bowel sounds normal, soft, no tenderness, no masses, no pulsatile masses. [] Skin: Warm, dry, no erythema, no rash. [] Back: No tenderness, no CVA tenderness. [] Extremities: No tenderness, no cyanosis, no clubbing, ROM intact, no edema. [] Neurologic: Alert and oriented X 3, normal motor function, normal sensory function, no focal deficits noted. [] Psychologic: Affect normal, judgement normal, mood normal. [] EKG: EKG: [] Radiology/Procedures: Radiology/Procedures: [] Course & Med Decision Making: Course & Med Decision Making Pertinent Labs and Imaging studies reviewed. (See chart for details) [] Dragon Disclaimer: Dragon Disclaimer: This electronic medical record was generated, in whole or in part, using a voice recognition dictation system. Departure Departure Impression: Primary Impression: CHF (congestive heart failure) Disposition: 09 ADMITTED INPT THIS HOSP Admitting Physician: HIMAsia Condition: STABLE Referrals: JADA ZURITA MD (PCP) RAFAEL VAUGHN MD May 04, 2020 07:26
[2020-05-04] MEDS ORDERED: MORPHINE SULFATE 2 MG/ML VIAL. IV PRN ×2 (07:45→11:15)
[2020-05-04] MEDS ORDERED: ASPIRIN CHEWABLE 81 MG TABLET. PO ONE (07:45)
--- NOTE | 2020-05-04 07:50 | RAD ---
XR CHEST 1V History: Reason: chest pain / Spl. Instructions: / History: Comparison: May 13, 2013 Findings: Ill-defined mid and bibasilar opacities. No pleural effusion. No pneumothorax. Portable technique acc entuates cardiac size. Impression: 1. Ill-defined mid and bibasilar opacities, may represent atelectasis or early infiltrates such as v iral pneumonia. Electronically signed by: Jorgito Samuel DO (05/04/2020 7:48 AM) [id number]
[2020-05-04 08:02] LABS: BASO % 1 % (0-3); EOS # 0.1 x10^3/uL (0.0-0.7); EOS % 2 % (0-3); HEMATOCRIT 38.4 % (39.0-53.0); HEMOGLOBIN 12.7 g/dL (13.0-17.5); LYMPH # 0.7 x10^3/uL (1.0-4.8); LYMPH % 13 % (24-48); MEAN CORPUSCULAR HEMOGLOBIN 28 pg (25-35); MEAN CORPUSCULAR HGB CONC 33 g/dL (31-37); MEAN CORPUSCULAR VOLUME 84 fL (79-100); MONO # 0.5 x10^3/uL (0.0-1.1); MONO % 9 % (0-9); NEUT % 75 % (31-73); PLATELET COUNT 234 x10^3/uL (140-400); RED BLOOD COUNT 4.56 x10^6/uL (4.30-5.70); RED CELL DISTRIBUTION WIDTH 14.7 % (11.5-14.5); WHITE BLOOD COUNT 5.3 x10^3/uL (4.0-11.0)
[2020-05-04 08:10] LABS: PROTHROMBIN TIME PATIENT 14.3 SEC (11.7-14.0)
[2020-05-04 08:14] LABS: CALCIUM 8.8 mg/dL (8.5-10.1); GFR 82.3; POTASSIUM 3.8 mmol/L (3.5-5.1)
[2020-05-04] MEDS ORDERED: NITROGLYCERIN SUBLINGUAL 0.4 MG BOTTLE OF 25. SL PRN (08:15)
[2020-05-04 08:19] LABS: ALBUMIN 3.4 g/dL (3.4-5.0); DIRECT BILIRUBIN 0.1 mg/dL (0.0-0.2); TOTAL BILIRUBIN 0.6 mg/dL (0.2-1.0); TOTAL PROTEIN 6.6 g/dL (6.4-8.2)
[2020-05-04] MEDS: fentaNYL PF VIAL 100 MCG/2 ML VIAL IV PRN ×3 (08:39→13:22)
[2020-05-04] MEDS ORDERED: FUROSEMIDE 20 MG/2 ML VIAL. IVP ONE (08:45)
[2020-05-04 09:52] LABS: BILIRUBIN,URINE NEGATIVE (NEG); CLARITY,URINE CLEAR; COLOR,URINE YELLOW; NITRITE,URINE NEGATIVE (NEG); PROTEIN,URINE NEGATIVE (NEG-TRACE); UROBILINOGEN,URINE 0.2 mg/dL (0.2 mg/dL)
[2020-05-04 10:11] LABS: BACTERIA,URINE 0 /HPF (0-FEW); RBC,URINE OCC /HPF (0-2); WBC,URINE RARE /HPF (0-4)
[2020-05-04] MEDS ORDERED: LISINOPRIL 20 MG TABLET PO SCH (11:15)
[2020-05-04] MEDS ORDERED: MAG HYDROX/ALUMINUM HYD/SIMETH 30 ML ORAL.SUSP PO PRN (11:15)
[2020-05-04] MEDS ORDERED: CALCIUM CARBONATE 500 MG TAB.CHEW PO PRN (11:15)
[2020-05-04] MEDS ORDERED: ONDANSETRON PF 4 MG/2 ML VIAL. IVP PRN (11:15)
[2020-05-04] MEDS ORDERED: BISACODYL 10 MG SUPP.RECT. PR PRN (11:15)
[2020-05-04] MEDS ORDERED: ACETAMINOPHEN 325 MG TABLET. PO PRN (11:15)
[2020-05-04] MEDS ORDERED: MAGNESIUM HYDROXIDE 2,400 MG/30 ML ORAL.SUSP. PO PRN (11:15)
--- NOTE | 2020-05-04 11:18 | PDOC1 ---
History and Physical Date of Admission Date of Admission DATE: 05/04/20 TIME: 10:50 Identification/Chief Complaint Chief Complaint Chest pain Source Source: Patient History of Present Illness History of Present Illness Patient is 39-year-old male past medical history CHF, hypertension, who presents to the ER with complaints of intermittent chest pain since yesterday. He reports sharp left-sided chest pain without radiation. Associated shortness of breath. Past Medical History Cardiovascular: CHF, HTN Pulmonary: No pertinent hx Past Surgical History Past Surgical History: Tonsillectomy Family History Family History: Hypertension Social History Smoke: No ALCOHOL: occassional Drugs: None Current Medications Current Medications Current Medications Aspirin (Aspirin Chewable) 324 mg 1X ONCE PO Last administered on 05/04/20at 07:52; Start 05/04/20 at 07:45; Stop 05/04/20 at 07:46; Status DC Morphine Sulfate (Morphine Sulfate) 2 mg PRN Q1HR PRN IV chest pain Last administered on 05/04/20at 07:52; Start 05/04/20 at 07:45; Stop 05/04/20 at 08:32; Status DC Nitroglycerin (Nitrostat) 0.4 mg PRN Q5MIN PRN SL CHEST PAIN; Start 05/04/20 at 08:15 Fentanyl Citrate (Fentanyl 2ml Vial) 50 mcg PRN Q30MIN PRN IV SEVERE PAIN 7-10 Last administered on 05/04/20at 09:21; Start 05/04/20 at 08:30 Furosemide (Lasix) 20 mg 1X ONCE IVP Last administered on 05/04/20at 08:40; Start 05/04/20 at 08:45; Stop 05/04/20 at 08:46; Status DC Active Scripts Active Cefpodoxime Proxetil 200 Mg Tablet 200 Mg PO BID 7 Days Reported Percocet 5-325 Mg Tablet (Oxycodone/Acetaminophen) 1 Each Tablet 1 Tab PO PRN Q6HRS PRN Multiple Vitamin (Multivitamin With Minerals) 1 Each Tablet 1 Each PO DAILY Lisinopril 40 Mg Tablet 1 Tab PO DAILY Labetalol Hcl 200 Mg Tablet 1 Tab PO BID Furosemide 40 Mg Tablet 1 Tab PO DAILY Aspirin 81 Mg Tab.chew 1 Tab PO DAILY Allergies Allergies: Coded Allergies: No Known Drug Allergies (Unverified , 05/13/13) ROS Review of System GENERAL: No history of weight change, weakness or fevers. SKIN: No bruising, hair changes or rashes. EYES: No blurred, double or loss of vision. NOSE AND THROAT: No history of nosebleeds, hoarseness or sore throat. HEART: Chest pain. Denies palpitations. LUNGS: Denies cough, hemoptysis, wheezing or shortness of breath. GASTROINTESTINAL: Denies nausea, vomiting, abdominal pain. GENITOURINARY: Denies dysuria, frequency, urgency, hematuria. NEUROLOGIC: Denies history of numbness, tingling, tremor or weakness. PSYCHIATRIC: Denies anxiety, denies depression. ENDOCRINE: No history of heat or cold intolerance, polyuria or polydipsia. EXTREMITIES: Denies muscle weakness, joint pain, pain on walking or stiffness. Physical Exam Physical Exam General: Alert, Oriented X3, Cooperative, mild distress, obese. HEENT: PERRLA, EOMI Lungs: Clear to auscultation, Normal air movement Heart: RRR, no murmurs Cardiovascular: S1, S2 Abdomen: Normal bowel sounds, Soft, No tenderness Extremities: No clubbing, No cyanosis Skin: No rashes, No significant lesion Neuro: Normal speech, Normal tone, Sensation intact Psych/Mental Status: Mental status NL, Mood NL Vitals Vitals Vital Signs Date Time Temp Pulse Resp B/P (MAP) Pulse Ox O2 Delivery O2 Flow Rate FiO2 05/04/20 08:27 98.2 66 20 162/81 (108) 98 Room Air 98.2 Labs Labs Laboratory Tests Test 05/04/20 07:30 05/04/20 09:10 White Blood Count 5.3 x10^3/uL (4.0-11.0) Red Blood Count 4.56 x10^6/uL (4.30-5.70) Hemoglobin 12.7 g/dL (13.0-17.5) Hematocrit 38.4 % (39.0-53.0) Mean Corpuscular Volume 84 fL (79-100) Mean Corpuscular Hemoglobin 28 pg (25-35) Mean Corpuscular Hemoglobin Concent 33 g/dL (31-37) Red Cell Distribution Width 14.7 % (11.5-14.5) Platelet Count 234 x10^3/uL (140-400) Neutrophils (%) (Auto) 75 % (31-73) Lymphocytes (%) (Auto) 13 % (24-48) Monocytes (%) (Auto) 9 % (0-9) Eosinophils (%) (Auto) 2 % (0-3) Basophils (%) (Auto) 1 % (0-3) Neutrophils # (Auto) 4.0 x10^3/uL (1.8-7.7) Lymphocytes # (Auto) 0.7 x10^3/uL (1.0-4.8) Monocytes # (Auto) 0.5 x10^3/uL (0.0-1.1) Eosinophils # (Auto) 0.1 x10^3/uL (0.0-0.7) Basophils # (Auto) 0.0 x10^3/uL (0.0-0.2) Prothrombin Time 14.3 SEC (11.7-14.0) Prothromb Time International Ratio 1.1 (0.8-1.1) Activated Partial Thromboplast Time 36 SEC (24-38) D-Dimer (Sarahi) < 0.27 ug/mlFEU Sodium Level 143 mmol/L (136-145) Potassium Level 3.8 mmol/L (3.5-5.1) Chloride Level 109 mmol/L (98-107) Carbon Dioxide Level 23 mmol/L (21-32) Anion Gap 11 (6-14) Blood Urea Nitrogen 10 mg/dL (8-26) Creatinine 1.0 mg/dL (0.7-1.3) Estimated GFR (Cockcroft-Gault) 82.3 Glucose Level 98 mg/dL (70-99) Calcium Level 8.8 mg/dL (8.5-10.1) Total Bilirubin 0.6 mg/dL (0.2-1.0) Direct Bilirubin 0.1 mg/dL (0.0-0.2) Aspartate Amino Transf (AST/SGOT) 8 U/L (15-37) Alanine Aminotransferase (ALT/SGPT) 10 U/L (16-63) Alkaline Phosphatase 56 U/L (46-116) Troponin I Quantitative < 0.017 ng/mL (0.000-0.055) FT-Tqo-W-Type Natriuretic Peptide 228 pg/mL (0-124) Total Protein 6.6 g/dL (6.4-8.2) Albumin 3.4 g/dL (3.4-5.0) Lipase 47 U/L (73-393) Urine Collection Type Unknown Urine Color Yellow Urine Clarity Clear Urine pH 8.0 (<5.0-8.0) Urine Specific [place] 1.015 (1.000-1.030) Urine Protein Negative mg/dL (NEG-TRACE) Urine Glucose (UA) Negative mg/dL (NEG) Urine Ketones (Stick) Negative mg/dL (NEG) Urine Blood Negative (NEG) Urine Nitrite Negative (NEG) Urine Bilirubin Negative (NEG) Urine Urobilinogen Dipstick 0.2 mg/dL (0.2 mg/dL) Urine Leukocyte Esterase Negative (NEG) Urine RBC Occ /HPF (0-2) Urine WBC Rare /HPF (0-4) Urine Squamous Epithelial Cells Few /LPF Urine Bacteria 0 /HPF (0-FEW) Urine Mucus Slight /LPF Laboratory Tests Test 05/04/20 07:30 05/04/20 09:10 White Blood Count 5.3 x10^3/uL (4.0-11.0) Red Blood Count 4.56 x10^6/uL (4.30-5.70) Hemoglobin 12.7 g/dL (13.0-17.5) Hematocrit 38.4 % (39.0-53.0) Mean Corpuscular Volume 84 fL (79-100) Mean Corpuscular Hemoglobin 28 pg (25-35) Mean Corpuscular Hemoglobin Concent 33 g/dL (31-37) Red Cell Distribution Width 14.7 % (11.5-14.5) Platelet Count 234 x10^3/uL (140-400) Neutrophils (%) (Auto) 75 % (31-73) Lymphocytes (%) (Auto) 13 % (24-48) Monocytes (%) (Auto) 9 % (0-9) Eosinophils (%) (Auto) 2 % (0-3) Basophils (%) (Auto) 1 % (0-3) Neutrophils # (Auto) 4.0 x10^3/uL (1.8-7.7) Lymphocytes # (Auto) 0.7 x10^3/uL (1.0-4.8) Monocytes # (Auto) 0.5 x10^3/uL (0.0-1.1) Eosinophils # (Auto) 0.1 x10^3/uL (0.0-0.7) Basophils # (Auto) 0.0 x10^3/uL (0.0-0.2) Prothrombin Time 14.3 SEC (11.7-14.0) Prothromb Time International Ratio 1.1 (0.8-1.1) Activated Partial Thromboplast Time 36 SEC (24-38) D-Dimer (Sarahi) < 0.27 ug/mlFEU Sodium Level 143 mmol/L (136-145) Potassium Level 3.8 mmol/L (3.5-5.1) Chloride Level 109 mmol/L (98-107) Carbon Dioxide Level 23 mmol/L (21-32) Anion Gap 11 (6-14) Blood Urea Nitrogen 10 mg/dL (8-26) Creatinine 1.0 mg/dL (0.7-1.3) Estimated GFR (Cockcroft-Gault) 82.3 Glucose Level 98 mg/dL (70-99) Calcium Level 8.8 mg/dL (8.5-10.1) Total Bilirubin 0.6 mg/dL (0.2-1.0) Direct Bilirubin 0.1 mg/dL (0.0-0.2) Aspartate Amino Transf (AST/SGOT) 8 U/L (15-37) Alanine Aminotransferase (ALT/SGPT) 10 U/L (16-63) Alkaline Phosphatase 56 U/L (46-116) Troponin I Quantitative < 0.017 ng/mL (0.000-0.055) BK-Ayd-S-Type Natriuretic Peptide 228 pg/mL (0-124) Total Protein 6.6 g/dL (6.4-8.2) Albumin 3.4 g/dL (3.4-5.0) Lipase 47 U/L (73-393) Urine Collection Type Unknown Urine Color Yellow Urine Clarity Clear Urine pH 8.0 (<5.0-8.0) Urine Specific [place] 1.015 (1.000-1.030) Urine Protein Negative mg/dL (NEG-TRACE) Urine Glucose (UA) Negative mg/dL (NEG) Urine Ketones (Stick) Negative mg/dL (NEG) Urine Blood Negative (NEG) Urine Nitrite Negative (NEG) Urine Bilirubin Negative (NEG) Urine Urobilinogen Dipstick 0.2 mg/dL (0.2 mg/dL) Urine Leukocyte Esterase Negative (NEG) Urine RBC Occ /HPF (0-2) Urine WBC Rare /HPF (0-4) Urine Squamous Epithelial Cells Few /LPF Urine Bacteria 0 /HPF (0-FEW) Urine Mucus Slight /LPF Images Images XR CHEST 1V History: Reason: chest pain / Spl. Instructions: / History: Comparison: May 13, 2013 Findings: Ill-defined mid and bibasilar opacities. No pleural effusion. No pneumothorax. Portable technique accentuates cardiac size. Impression: 1. Ill-defined mid and bibasilar opacities, may represent atelectasis or early infiltrates such as viral pneumonia. VTE Prophylaxis Ordered VTE Prophylaxis Devices: Yes VTE Pharmacological Prophylaxi: No Assessment/Plan Assessment/Plan Unstable angina CHF Obesity COVID-19 PUI Plan: Troponin <0.017. Continue to trend. Received aspirin and Lasix in the ER. Consult to cardiology Echocardiogram obtained on 02/13/2020 EF 55-60%, mild concentric left ventricular hypertrophy. Morphine, nitroglycerin as needed library monitor Chest x-ray admission concerning for ill-defined mid and bibasilar opacities. May represent atelectasis or early infiltrates such as viral pneumonia. Will obtain procalcitonin and swab for COVID-19 and influenza. Continue home medications FEN - NPO for now; Cardiac diet PPX - Heparin FULL CODE Dispo - inpatient for above Justifications for Admission Other Justification GIOVANNI ROTH MD May 04, 2020 11:18
[2020-05-04] MEDS: HEPARIN for SUB-Q USE 5,000 UNIT/ML VIAL. SQ SCH ×2 (12:00→20:59)
[2020-05-04] MEDS: LABETALOL HCL 200 MG TABLET PO SCH ×2 (13:19→20:58)
[2020-05-04] MEDS: FUROSEMIDE 40 MG TABLET. PO SCH (13:20)
[2020-05-04] MEDS: ASPIRIN CHEWABLE 81 MG TABLET. PO SCH (13:21)
[2020-05-04] MEDS: oxyCODONE/APAP 5/325 1 TAB TABLET PO PRN ×2 (15:28→22:44)
--- NOTE | 2020-05-04 16:03 | PDOC2 ---
CONSULT Date of Consult Date of Consult DATE: 05/04/20 TIME: 15:58 Reason for Consult Reason for Consult: Chest pain Referring Physician Referring Physician: Dr. Calderon Identification/Chief Complaint Chief Complaint Chest pain Source Source: Chart review, Patient History of Present Illness Reason for Visit: The patient is a 39-year-old male who developed chest pain which radiated to his bilateral shoulders starting approximately yesterday. It has gradually increased and he came to the emergency room for evaluation. Initial work-up included a nonischemic EKG. Patient's troponin has been negative x2. BNP is mildly elevated at 228. Chest x-ray shows mild basilar opacities. The patient has been mildly diuresed and is feeling better although his pain has persisted. Heart catheterization on 11/08/2017 showed no significant coronary artery disease and an ejection fraction of 45%. A more recent updated echo shows normal LV s ystolic function. Past Medical History Cardiovascular: CHF, HTN Pulmonary: No pertinent hx Renal/: Other (History of a kidney stone) Past Surgical History Past Surgical History: Tonsillectomy Family History Family History: Heart Disease, Hypertension Social History No ALCOHOL: occassional Drugs: None Current Medications Current Medications Current Medications Aspirin (Aspirin Chewable) 324 mg 1X ONCE PO Last administered on 05/04/20at 07:52; Start 05/04/20 at 07:45; Stop 05/04/20 at 07:46; Status DC Morphine Sulfate (Morphine Sulfate) 2 mg PRN Q1HR PRN IV chest pain Last administered on 05/04/20at 07:52; Start 05/04/20 at 07:45; Stop 05/04/20 at 08:32; Status DC Nitroglycerin (Nitrostat) 0.4 mg PRN Q5MIN PRN SL CHEST PAIN; Start 05/04/20 at 08:15 Fentanyl Citrate (Fentanyl 2ml Vial) 50 mcg PRN Q30MIN PRN IV SEVERE PAIN 7-10 Last administered on 05/04/20at 13:22; Start 05/04/20 at 08:30; Stop 05/04/20 at 13:22; Status DC Furosemide (Lasix) 20 mg 1X ONCE IVP Last administered on 05/04/20at 08:40; Start 05/04/20 at 08:45; Stop 05/04/20 at 08:46; Status DC Aspirin (Aspirin Chewable) 81 mg DAILY PO Last administered on 05/04/20at 13:21; Start 05/04/20 at 11:00 Furosemide (Lasix) 40 mg DAILY PO Last administered on 05/04/20at 13:20; Start 05/04/20 at 11:15 Labetalol HCl (Trandate) 200 mg BID PO Last administered on 05/04/20at 13:19; Start 05/04/20 at 11:15 Lisinopril (Prinivil) 40 mg DAILY PO ; Start 05/04/20 at 11:15 Oxycodone/ Acetaminophen (Percocet 5/325) 1 tab PRN Q6HRS PRN PO MODERATE TO SE ROXANA PAIN Last administered on 05/04/20at 15:28; Start 05/04/20 at 11:00 Ondansetron HCl (Zofran) 4 mg PRN Q6HRS PRN IVP NAUSEA/VOMITING; Start 05/04/20 at 11:15 Al Hydroxide/Mg Hydroxide (Mylanta Plus Xs) 30 ml PRN Q3HRS PRN PO HEARTBURN / GAS; Start 05/04/20 at 11:15 Calcium Carbonate/ Glycine (Tums) 500 mg PRN Q3HRS PRN PO UPSET STOMACH Last administered on 05/04/20at 13:20; Start 05/04/20 at 11:15 Morphine Sulfate (Morphine Sulfate) 2 mg PRN Q1HR PRN IV PAIN-SEE COMMENTS; Start 05/04/20 at 11:15 Acetaminophen (Tylenol) 650 mg PRN Q6HRS PRN PO Headaches, Temp > 101.5F; Start 05/04/20 at 11:15 Magnesium Hydroxide (Milk Of Magnesia) 2,400 mg PRN Q12HR PRN PO CONSTIPATION; Start 05/04/20 at 11:15 Bisacodyl (Dulcolax Supp) 10 mg PRN DAILY PRN [place] CONSTIPATION; Start 05/04/20 at 11:15 Heparin Sodium (Porcine) (Heparin Sodium) 5,000 unit Q8HRS SQ ; Start 05/04/20 at 12:00 Active Scripts Active Cefpodoxime Proxetil 200 Mg Tablet 200 Mg PO BID 7 Days Reported Percocet 5-325 Mg Tablet (Oxycodone/Acetaminophen) 1 Each Tablet 1 Tab PO PRN Q6HRS PRN Multiple Vitamin (Multivitamin With Minerals) 1 Each Tablet 1 Each PO DAILY Lisinopril 40 Mg Tablet 1 Tab PO DAILY Labetalol Hcl 200 Mg Tablet 1 Tab PO BID Furosemide 40 Mg Tablet 1 Tab PO DAILY Aspirin 81 Mg Tab.chew 1 Tab PO DAILY Allergies Allergies: Coded Allergies: No Known Drug Allergies (Unverified , 05/13/13) ROS Respiratory: YES: SOB with excertion Cardiovascular: yes Chest Pain Physical Exam General: mild distress HEENT: Atraumatic Lungs: Other (Slightly decreased breath sounds in the bases) Heart: Regular rate Abdomen: Normal bowel sounds Vitals VITALS Vital Signs Date Time Temp Pulse Resp B/P (MAP) Pulse Ox O2 Delivery O2 Flow Rate FiO2 05/04/20 15:28 16 97 Room Air 05/04/20 13:19 72 150/77 05/04/20 08:27 98.2 98.2 Labs Labs Laboratory Tests Test 05/04/20 07:30 05/04/20 09:10 05/04/20 14:10 White Blood Count 5.3 x10^3/uL (4.0-11.0) Red Blood Count 4.56 x10^6/uL (4.30-5.70) Hemoglobin 12.7 g/dL (13.0-17.5) Hematocrit 38.4 % (39.0-53.0) Mean Corpuscular Volume 84 fL (79-100) Mean Corpuscular Hemoglobin 28 pg (25-35) Mean Corpuscular Hemoglobin Concent 33 g/dL (31-37) Red Cell Distribution Width 14.7 % (11.5-14.5) Platelet Count 234 x10^3/uL (140-400) Neutrophils (%) (Auto) 75 % (31-73) Lymphocytes (%) (Auto) 13 % (24-48) Monocytes (%) (Auto) 9 % (0-9) Eosinophils (%) (Auto) 2 % (0-3) Basophils (%) (Auto) 1 % (0-3) Neutrophils # (Auto) 4.0 x10^3/uL (1.8-7.7) Lymphocytes # (Auto) 0.7 x10^3/uL (1.0-4.8) Monocytes # (Auto) 0.5 x10^3/uL (0.0-1.1) Eosinophils # (Auto) 0.1 x10^3/uL (0.0-0.7) Basophils # (Auto) 0.0 x10^3/uL (0.0-0.2) Prothrombin Time 14.3 SEC (11.7-14.0) Prothromb Time International Ratio 1.1 (0.8-1.1) Activated Partial Thromboplast Time 36 SEC (24-38) D-Dimer (Sarahi) < 0.27 ug/mlFEU Sodium Level 143 mmol/L (136-145) Potassium Level 3.8 mmol/L (3.5-5.1) Chloride Level 109 mmol/L (98-107) Carbon Dioxide Level 23 mmol/L (21-32) Anion Gap 11 (6-14) Blood Urea Nitrogen 10 mg/dL (8-26) Creatinine 1.0 mg/dL (0.7-1.3) Estimated GFR (Cockcroft-Gault) 82.3 Glucose Level 98 mg/dL (70-99) Calcium Level 8.8 mg/dL (8.5-10.1) Total Bilirubin 0.6 mg/dL (0.2-1.0) Direct Bilirubin 0.1 mg/dL (0.0-0.2) Aspartate Amino Transf (AST/SGOT) 8 U/L (15-37) Alanine Aminotransferase (ALT/SGPT) 10 U/L (16-63) Alkaline Phosphatase 56 U/L (46-116) Troponin I Quantitative < 0.017 ng/mL (0.000-0.055) < 0.017 ng/mL (0.000-0.055) ZA-Awa-K-Type Natriuretic Peptide 228 pg/mL (0-124) Total Protein 6.6 g/dL (6.4-8.2) Albumin 3.4 g/dL (3.4-5.0) Lipase 47 U/L (73-393) Procalcitonin < 0.10 ng/mL (0.00-0.10) Urine Collection Type Unknown Urine Color Yellow Urine Clarity Clear Urine pH 8.0 (<5.0-8.0) Urine Specific [place] 1.015 (1.000-1.030) Urine Protein Negative mg/dL (NEG-TRACE) Urine Glucose (UA) Negative mg/dL (NEG) Urine Ketones (Stick) Negative mg/dL (NEG) Urine Blood Negative (NEG) Urine Nitrite Negative (NEG) Urine Bilirubin Negative (NEG) Urine Urobilinogen Dipstick 0.2 mg/dL (0.2 mg/dL) Urine Leukocyte Esterase Negative (NEG) Urine RBC Occ /HPF (0-2) Urine WBC Rare /HPF (0-4) Urine Squamous Epithelial Cells Few /LPF Urine Bacteria 0 /HPF (0-FEW) Urine Mucus Slight /LPF Laboratory Tests Test 05/04/20 07:30 05/04/20 09:10 05/04/20 14:10 White Blood Count 5.3 x10^3/uL (4.0-11.0) Red Blood Count 4.56 x10^6/uL (4.30-5.70) Hemoglobin 12.7 g/dL (13.0-17.5) Hematocrit 38.4 % (39.0-53.0) Mean Corpuscular Volume 84 fL (79-100) Mean Corpuscular Hemoglobin 28 pg (25-35) Mean Corpuscular Hemoglobin Concent 33 g/dL (31-37) Red Cell Distribution Width 14.7 % (11.5-14.5) Platelet Count 234 x10^3/uL (140-400) Neutrophils (%) (Auto) 75 % (31-73) Lymphocytes (%) (Auto) 13 % (24-48) Monocytes (%) (Auto) 9 % (0-9) Eosinophils (%) (Auto) 2 % (0-3) Basophils (%) (Auto) 1 % (0-3) Neutrophils # (Auto) 4.0 x10^3/uL (1.8-7.7) Lymphocytes # (Auto) 0.7 x10^3/uL (1.0-4.8) Monocytes # (Auto) 0.5 x10^3/uL (0.0-1.1) Eosinophils # (Auto) 0.1 x10^3/uL (0.0-0.7) Basophils # (Auto) 0.0 x10^3/uL (0.0-0.2) Prothrombin Time 14.3 SEC (11.7-14.0) Prothromb Time International Ratio 1.1 (0.8-1.1) Activated Partial Thromboplast Time 36 SEC (24-38) D-Dimer (Sarahi) < 0.27 ug/mlFEU Sodium Level 143 mmol/L (136-145) Potassium Level 3.8 mmol/L (3.5-5.1) Chloride Level 109 mmol/L (98-107) Carbon Dioxide Level 23 mmol/L (21-32) Anion Gap 11 (6-14) Blood Urea Nitrogen 10 mg/dL (8-26) Creatinine 1.0 mg/dL (0.7-1.3) Estimated GFR (Cockcroft-Gault) 82.3 Glucose Level 98 mg/dL (70-99) Calcium Level 8.8 mg/dL (8.5-10.1) Total Bilirubin 0.6 mg/dL (0.2-1.0) Direct Bilirubin 0.1 mg/dL (0.0-0.2) Aspartate Amino Transf (AST/SGOT) 8 U/L (15-37) Alanine Aminotransferase (ALT/SGPT) 10 U/L (16-63) Alkaline Phosphatase 56 U/L (46-116) Troponin I Quantitative < 0.017 ng/mL (0.000-0.055) < 0.017 ng/mL (0.000-0.055) BW-Llj-M-Type Natriuretic Peptide 228 pg/mL (0-124) Total Protein 6.6 g/dL (6.4-8.2) Albumin 3.4 g/dL (3.4-5.0) Lipase 47 U/L (73-393) Procalcitonin < 0.10 ng/mL (0.00-0.10) Urine Collection Type Unknown Urine Color Yellow Urine Clarity Clear Urine pH 8.0 (<5.0-8.0) Urine Specific [place] 1.015 (1.000-1.030) Urine Protein Negative mg/dL (NEG-TRACE) Urine Glucose (UA) Negative mg/dL (NEG) Urine Ketones (Stick) Negative mg/dL (NEG) Urine Blood Negative (NEG) Urine Nitrite Negative (NEG) Urine Bilirubin Negative (NEG) Urine Urobilinogen Dipstick 0.2 mg/dL (0.2 mg/dL) Urine Leukocyte Esterase Negative (NEG) Urine RBC Occ /HPF (0-2) Urine WBC Rare /HPF (0-4) Urine Squamous Epithelial Cells Few /LPF Urine Bacteria 0 /HPF (0-FEW) Urine Mucus Slight /LPF Images Images Chest x-ray with mild bibasilar opacities Assessment/Plan Assessment/Plan 1. Chest pain. Patient has no acute EKG changes. Troponin has been normal x2. BNP is minimally elevated at 228. Cardiac catheterization in 2018 as noted above showed no significant coronary disease. At this time we will complete rule out protocol. Would treat for mild heart failure. Continuing to monitor lab. 2. Hypertension. Reasonable control. Continue present treatments and monitor. 3. Chest x-ray with mild bibasilar opacities. Patient is being evaluated for Covid. 4. Uncertain cholesterol level. Will check morning lab. Thank you for allowing us to participate in the care of your patient. ONEIL MOSCOSO MD May 04, 2020 16:03
[2020-05-04] MEDS ORDERED: AMLO-186 PO (18:07)
[2020-05-04] MEDS ORDERED: HYDR100T24 PO (18:07)
[2020-05-04] MEDS ORDERED: SACU1TAB7 PO (18:07)
[2020-05-04 19:40] VITALS: BP 140/78
[2020-05-04] MEDS: SACUBITRIL/VALSARTAN 49/51MG TABLET. PO SCH (20:58)
[2020-05-04 23:38] VITALS: BP 118/62
[2020-05-05 03:42] VITALS: BP 129/78
--- NOTE | 2020-05-05 04:23 | NUR ---
Pt has c/o of abdominal/midsternal pain, reviewed pt's chart and pt has hx of kidney stones. Spoke with pt, pt stated having similar pain a week ago with hematuria, but resolved on its own. Troponin panel negative, VSS, SR/SB on telemetry, will continue to monitor for status changes.
[2020-05-05] MEDS: HEPARIN for SUB-Q USE 5,000 UNIT/ML VIAL. SQ SCH ×2 (06:16→14:00)
[2020-05-05 07:00] VITALS: BP 140/80
--- NOTE | 2020-05-05 07:50 | PDOC ---
[employer] PROGRESS NOTE Date of Service DOS: DATE: 05/05/20 TIME: 07:43 Chief Complaint Chief Complaint A/P: Unstable angina CHF Obesity Abnormal chest radiograph History of Present Illness History of Present Illness Mr Enrique is a 39 yo M with substernal that started 05/03/20. Pain is sharp and shooting. It does radiate to his back. It comes and goes. Without alleviating or exacerbating factors. He has a history of heart failure and is on Lasix and has medications for blood pressure. He reports having a heart cath 2018 reportedly "normal". He denies unilateral leg swelling hemoptysis recent surgery or immobilization. He denies history of DVT or PE. He does not have a family history of heart disease. Review of systems negative for abdominal pain vomiting diaphoresis fevers chills. He denies cough. Negative for nuchal rigidity or headache. All other review of systems negative. EKG sinus rhythm with a regular rate. ST segments congruent. Chest x-ray shows mid and bibasilar opacities likely atelectasis versus early infiltrates or a viral pneumonia. CBC shows a normal white blood cell count. Hemoglobin 12.7. Troponin within normal limits. Procalcitonin within normal limits. D-dimer within normal limits. Urine analysis unremarkable. proBNP is minimally elevated at 228. Given IV diuretics and admitted for further care Overnight no events. Covid test negative. He does note he was just started on amlodipine 2 days prior to this visit and he has been carrying 6-12 enriquez boxes at the [employer] where he works on his left shoulder. On examination he does exhibit signs and symptoms of left supraspinatus strain. I recommended that he take the next 5 days off work and see cardiology as is planned on 05/09/2020 and to continue his new dose of amlodipine and continue to check his blood pressure daily at home. He will continue to take his furosemide at home notes he has been not taking it while he is in the catcher with the [employer]. Vitals/I&O Vitals/I&O: Vital Signs Date Time Temp Pulse Resp B/P (MAP) Pulse Ox O2 Delivery O2 Flow Rate FiO2 05/05/20 03:57 94 Room Air 05/05/20 03:42 97.7 62 20 129/78 (95) 97.7 I & O 05/04/20 05/04/20 05/05/20 15:00 23:00 07:00 Intake Total 600 ml Output Total 500 ml 1150 ml 200 ml Balance -500 ml -550 ml -200 ml Physical Exam General: Alert, Cooperative, mild distress Heart: Regular rate Lungs: Clear Abdomen: Normal bowel sounds Labs Labs: Laboratory Tests Test 05/04/20 09:10 05/04/20 09:20 05/04/20 14:10 05/04/20 17:23 Urine Collection Type Unknown Urine Color Yellow Urine Clarity Clear Urine pH 8.0 (<5.0-8.0) Urine Specific [place] 1.015 (1.000-1.030) Urine Protein Negative mg/dL (NEG-TRACE) Urine Glucose (UA) Negative mg/dL (NEG) Urine Ketones (Stick) Negative mg/dL (NEG) Urine Blood Negative (NEG) Urine Nitrite Negative (NEG) Urine Bilirubin Negative (NEG) Urine Urobilinogen Dipstick 0.2 mg/dL (0.2 mg/dL) Urine Leukocyte Esterase Negative (NEG) Urine RBC Occ /HPF (0-2) Urine WBC Rare /HPF (0-4) Urine Squamous Epithelial Cells Few /LPF Urine Bacteria 0 /HPF (0-FEW) Urine Mucus Slight /LPF Coronavirus (PCR) Not detected (Not Detected) Troponin I Quantitative < 0.017 ng/mL (0.000-0.055) < 0.017 ng/mL (0.000-0.055) Comment Review of Relevant I have reviewed the following items tarah (where applicable) has been applied. Medications: Current Medications Medications (Trade) Dose Ordered Sig/Esdras Route PRN Reason Start Time Stop Time Status Last Admin Dose Admin Aspirin (Aspirin Chewable) 324 mg 1X ONCE PO 05/04/20 07:45 05/04/20 07:46 DC 05/04/20 07:52 Morphine Sulfate (Morphine Sulfate) 2 mg PRN Q1HR PRN IV chest pain 05/04/20 07:45 05/04/20 08:32 DC 05/04/20 07:52 Fentanyl Citrate (Fentanyl 2ml Vial) 50 mcg PRN Q30MIN PRN IV SEVERE PAIN 7-10 05/04/20 08:30 05/04/20 13:22 DC 05/04/20 13:22 Furosemide (Lasix) 20 mg 1X ONCE IVP 05/04/20 08:45 05/04/20 08:46 DC 05/04/20 08:40 Aspirin (Aspirin Chewable) 81 mg DAILY PO 05/04/20 11:00 05/04/20 13:21 Furosemide (Lasix) 40 mg DAILY PO 05/04/20 11:15 05/04/20 13:20 Labetalol HCl (Trandate) 200 mg BID PO 05/04/20 11:15 05/04/20 20:58 Oxycodone/ Acetaminophen (Percocet 5/325) 1 tab PRN Q6HRS PRN PO MODERATE TO SEVERE PAIN 05/04/20 11:00 05/04/20 22:44 Calcium Carbonate/ Glycine (Tums) 500 mg PRN Q3HRS PRN PO UPSET STOMACH 05/04/20 11:15 05/04/20 13:20 Morphine Sulfate (Morphine Sulfate) 2 mg PRN Q1HR PRN IV PAIN-SEE COMMENTS 05/04/20 11:15 05/05/20 03:27 Heparin Sodium (Porcine) (Heparin Sodium) 5,000 unit Q8HRS SQ 05/04/20 12:00 05/05/20 06:16 Sacubitril/ Valsartan (Entresto 49 Mg-51 Mg) 1 tab BID PO 05/04/20 21:00 05/04/20 20:58 Hydralazine HCl (Apresoline) 100 mg BID PO 05/04/20 21:00 05/04/20 20:58 Justifications for Admission Other Justification PATTI SPRAGUE MD May 05, 2020 07:50
[2020-05-05] MEDS: SACUBITRIL/VALSARTAN 49/51MG TABLET. PO SCH (08:33)
[2020-05-05] MEDS: ASPIRIN CHEWABLE 81 MG TABLET. PO SCH (08:33)
[2020-05-05] MEDS: LABETALOL HCL 200 MG TABLET PO SCH (08:33)
[2020-05-05] MEDS: FUROSEMIDE 40 MG TABLET. PO SCH (08:33)
[2020-05-05 10:56] LABS: BASO % 1 % (0-3); EOS # 0.1 x10^3/uL (0.0-0.7); EOS % 2 % (0-3); HEMATOCRIT 38.9 % (39.0-53.0); HEMOGLOBIN 12.8 g/dL (13.0-17.5); LYMPH # 0.7 x10^3/uL (1.0-4.8); LYMPH % 14 % (24-48); MEAN CORPUSCULAR HEMOGLOBIN 28 pg (25-35); MEAN CORPUSCULAR HGB CONC 33 g/dL (31-37); MEAN CORPUSCULAR VOLUME 85 fL (79-100); MONO # 0.6 x10^3/uL (0.0-1.1); MONO % 11 % (0-9); NEUT # 3.7 x10^3/uL (1.8-7.7); NEUT % 72 % (31-73); PLATELET COUNT 231 x10^3/uL (140-400); WHITE BLOOD COUNT 5.2 x10^3/uL (4.0-11.0)
[2020-05-05 11:00] VITALS: BP 120/65
[2020-05-05] MEDS ORDERED: POLYETHYLENE GLYCOL 3350 17 GM PACKET. PO PRN (11:00)
[2020-05-05 11:09] LABS: CALCIUM 8.6 mg/dL (8.5-10.1); CREATININE 0.9 mg/dL (0.7-1.3); POTASSIUM 3.7 mmol/L (3.5-5.1)
[2020-05-05 11:15] LABS: CHOLESTEROL/HDL RATIO 6.1
--- NOTE | 2020-05-05 14:25 | PDOC ---
PROGRESS NOTES Date of Service DATE: 05/05/20 TIME: 14:23 Subjective Subjective Patient seen and examined He looks and feels better today. Objective Objective Vital Signs Date Time Temp Pulse Resp B/P (MAP) Pulse Ox O2 Delivery O2 Flow Rate FiO2 05/05/20 11:00 98.0 71 18 120/65 (83) 92 Room Air 98.0 Intake and Output 05/05/20 07:00 Intake Total 600 ml Output Total 1850 ml Balance -1250 ml Intake Oral 600 ml Output Urine Total 1850 ml # Voids 5 Physical Exam Abdomen: Normal bowel sounds Heart: Regular rate General: No acute distress Lungs: Other (Slightly decreased breath sounds) Assessment Assessment 1. Chest pain. Pain has resolved. Patient has no acute EKG changes. Troponin has been normal x3. BNP is minimally elevated at 228. Cardiac catheterization in 2018 as noted above showed no significant coronary disease. At this time we will continue present treatments. [facility] . 2. Hypertension. Reasonable control. Continue present treatments and monitor. 3. Chest x-ray with mild bibasilar opacities. The patient is feeling better. Covid testing is negative. 4. Uncertain cholesterol level. Lab testing shows an elevated LDL at 130 and an HDL of 29. Will start statin medication. Comment Review of Relevant I have reviewed the following items tarah (where applicable) has been applied. Labs Laboratory Tests Test 05/04/20 07:30 05/04/20 09:10 05/04/20 09:20 05/04/20 14:10 White Blood Count 5.3 x10^3/uL (4.0-11.0) Red Blood Count 4.56 x10^6/uL (4.30-5.70) Hemoglobin 12.7 g/dL (13.0-17.5) Hematocrit 38.4 % (39.0-53.0) Mean Corpuscular Volume 84 fL (79-100) Mean Corpuscular Hemoglobin 28 pg (25-35) Mean Corpuscular Hemoglobin Concent 33 g/dL (31-37) Red Cell Distribution Width 14.7 % (11.5-14.5) Platelet Count 234 x10^3/uL (140-400) Neutrophils (%) (Auto) 75 % (31-73) Lymphocytes (%) (Auto) 13 % (24-48) Monocytes (%) (Auto) 9 % (0-9) Eosinophils (%) (Auto) 2 % (0-3) Basophils (%) (Auto) 1 % (0-3) Neutrophils # (Auto) 4.0 x10^3/uL (1.8-7.7) Lymphocytes # (Auto) 0.7 x10^3/uL (1.0-4.8) Monocytes # (Auto) 0.5 x10^3/uL (0.0-1.1) Eosinophils # (Auto) 0.1 x10^3/uL (0.0-0.7) Basophils # (Auto) 0.0 x10^3/uL (0.0-0.2) Prothrombin Time 14.3 SEC (11.7-14.0) Prothromb Time International Ratio 1.1 (0.8-1.1) Activated Partial Thromboplast Time 36 SEC (24-38) D-Dimer (Sarahi) < 0.27 ug/mlFEU Sodium Level 143 mmol/L (136-145) Potassium Level 3.8 mmol/L (3.5-5.1) Chloride Level 109 mmol/L (98-107) Carbon Dioxide Level 23 mmol/L (21-32) Anion Gap 11 (6-14) Blood Urea Nitrogen 10 mg/dL (8-26) Creatinine 1.0 mg/dL (0.7-1.3) Estimated GFR (Cockcroft-Gault) 82.3 Glucose Level 98 mg/dL (70-99) Calcium Level 8.8 mg/dL (8.5-10.1) Total Bilirubin 0.6 mg/dL (0.2-1.0) Direct Bilirubin 0.1 mg/dL (0.0-0.2) Aspartate Amino Transf (AST/SGOT) 8 U/L (15-37) Alanine Aminotransferase (ALT/SGPT) 10 U/L (16-63) Alkaline Phosphatase 56 U/L (46-116) Troponin I Quantitative < 0.017 ng/mL (0.000-0.055) < 0.017 ng/mL (0.000-0.055) OB-[id number]-[id number]-Type Natriuretic Peptide 228 pg/mL (0-124) Total Protein 6.6 g/dL (6.4-8.2) Albumin 3.4 g/dL (3.4-5.0) Lipase 47 U/L (73-393) Procalcitonin < 0.10 ng/mL (0.00-0.10) Urine Collection Type Unknown Urine Color Yellow Urine Clarity Clear Urine pH 8.0 (<5.0-8.0) Urine Specific [place] 1.015 (1.000-1.030) Urine Protein Negative mg/dL (NEG-TRACE) Urine Glucose (UA) Negative mg/dL (NEG) Urine Ketones (Stick) Negative mg/dL (NEG) Urine Blood Negative (NEG) Urine Nitrite Negative (NEG) Urine Bilirubin Negative (NEG) Urine Urobilinogen Dipstick 0.2 mg/dL (0.2 mg/dL) Urine Leukocyte Esterase Negative (NEG) Urine RBC Occ /HPF (0-2) Urine WBC Rare /HPF (0-4) Urine Squamous Epithelial Cells Few /LPF Urine Bacteria 0 /HPF (0-FEW) Urine Mucus Slight /LPF Coronavirus (PCR) Not detected (Not Detected) Test 05/04/20 17:23 05/05/20 09:30 Troponin I Quantitative < 0.017 ng/mL (0.000-0.055) White Blood Count 5.2 x10^3/uL (4.0-11.0) Red Blood Count 4.60 x10^6/uL (4.30-5.70) Hemoglobin 12.8 g/dL (13.0-17.5) Hematocrit 38.9 % (39.0-53.0) Mean Corpuscular Volume 85 fL (79-100) Mean Corpuscular Hemoglobin 28 pg (25-35) Mean Corpuscular Hemoglobin Concent 33 g/dL (31-37) Red Cell Distribution Width 15.0 % (11.5-14.5) Platelet Count 231 x10^3/uL (140-400) Neutrophils (%) (Auto) 72 % (31-73) Lymphocytes (%) (Auto) 14 % (24-48) Monocytes (%) (Auto) 11 % (0-9) Eosinophils (%) (Auto) 2 % (0-3) Basophils (%) (Auto) 1 % (0-3) Neutrophils # (Auto) 3.7 x10^3/uL (1.8-7.7) Lymphocytes # (Auto) 0.7 x10^3/uL (1.0-4.8) Monocytes # (Auto) 0.6 x10^3/uL (0.0-1.1) Eosinophils # (Auto) 0.1 x10^3/uL (0.0-0.7) Basophils # (Auto) 0.0 x10^3/uL (0.0-0.2) Sodium Level 141 mmol/L (136-145) Potassium Level 3.7 mmol/L (3.5-5.1) Chloride Level 106 mmol/L (98-107) Carbon Dioxide Level 26 mmol/L (21-32) Anion Gap 9 (6-14) Blood Urea Nitrogen 10 mg/dL (8-26) Creatinine 0.9 mg/dL (0.7-1.3) Estimated GFR (Cockcroft-Gault) 93.0 Glucose Level 114 mg/dL (70-99) Calcium Level 8.6 mg/dL (8.5-10.1) Triglycerides Level 88 mg/dL (0-150) Cholesterol Level 177 mg/dL (0-200) LDL Cholesterol, Calculated 130 mg/dL (0-100) VLDL Cholesterol, Calculated 18 mg/dL (0-40) Non-HDL Cholesterol Calculated 148 mg/dL (0-129) HDL Cholesterol 29 mg/dL (40-60) Cholesterol/HDL Ratio 6.1 Laboratory Tests Test 05/04/20 17:23 05/05/20 09:30 Troponin I Quantitative < 0.017 ng/mL (0.000-0.055) White Blood Count 5.2 x10^3/uL (4.0-11.0) Red Blood Count 4.60 x10^6/uL (4.30-5.70) Hemoglobin 12.8 g/dL (13.0-17.5) Hematocrit 38.9 % (39.0-53.0) Mean Corpuscular Volume 85 fL (79-100) Mean Corpuscular Hemoglobin 28 pg (25-35) Mean Corpuscular Hemoglobin Concent 33 g/dL (31-37) Red Cell Distribution Width 15.0 % (11.5-14.5) Platelet Count 231 x10^3/uL (140-400) Neutrophils (%) (Auto) 72 % (31-73) Lymphocytes (%) (Auto) 14 % (24-48) Monocytes (%) (Auto) 11 % (0-9) Eosinophils (%) (Auto) 2 % (0-3) Basophils (%) (Auto) 1 % (0-3) Neutrophils # (Auto) 3.7 x10^3/uL (1.8-7.7) Lymphocytes # (Auto) 0.7 x10^3/uL (1.0-4.8) Monocytes # (Auto) 0.6 x10^3/uL (0.0-1.1) Eosinophils # (Auto) 0.1 x10^3/uL (0.0-0.7) Basophils # (Auto) 0.0 x10^3/uL (0.0-0.2) Sodium Level 141 mmol/L (136-145) Potassium Level 3.7 mmol/L (3.5-5.1) Chloride Level 106 mmol/L (98-107) Carbon Dioxide Level 26 mmol/L (21-32) Anion Gap 9 (6-14) Blood Urea Nitrogen 10 mg/dL (8-26) Creatinine 0.9 mg/dL (0.7-1.3) Estimated GFR (Cockcroft-Gault) 93.0 Glucose Level 114 mg/dL (70-99) Calcium Level 8.6 mg/dL (8.5-10.1) Triglycerides Level 88 mg/dL (0-150) Cholesterol Level 177 mg/dL (0-200) LDL Cholesterol, Calculated 130 mg/dL (0-100) VLDL Cholesterol, Calculated 18 mg/dL (0-40) Non-HDL Cholesterol Calculated 148 mg/dL (0-129) HDL Cholesterol 29 mg/dL (40-60) Cholesterol/HDL Ratio 6.1 Medications Current Medications Aspirin (Aspirin Chewable) 324 mg 1X ONCE PO Last administered on 05/04/20at 07:52; Start 05/04/20 at 07:45; Stop 05/04/20 at 07:46; Status DC Morphine Sulfate (Morphine Sulfate) 2 mg PRN Q1HR PRN IV chest pain Last administered on 05/04/20at 07:52; Start 05/04/20 at 07:45; Stop 05/04/20 at 08:32; Status DC Nitroglycerin (Nitrostat) 0.4 mg PRN Q5MIN PRN SL CHEST PAIN; Start 05/04/20 at 08:15 Fentanyl Citrate (Fentanyl 2ml Vial) 50 mcg PRN Q30MIN PRN IV SEVERE PAIN 7-10 Last administered on 05/04/20at 13:22; Start 05/04/20 at 08:30; Stop 05/04/20 at 13:22; Status DC Furosemide (Lasix) 20 mg 1X ONCE IVP Last administered on 05/04/20at 08:40; Start 05/04/20 at 08:45; Stop 05/04/20 at 08:46; Status DC Aspirin (Aspirin Chewable) 81 mg DAILY PO Last administered on 05/05/20at 08:33; Start 05/04/20 at 11:00 Furosemide (Lasix) 40 mg DAILY PO Last administered on 05/05/20at 08:33; Start 05/04/20 at 11:15 Labetalol HCl (Trandate) 200 mg BID PO Last administered on 05/05/20at 08:33; Start 05/04/20 at 11:15 Lisinopril (Prinivil) 40 mg DAILY PO ; Start 05/04/20 at 11:15; Stop 05/04/20 at 18:29; Status DC Oxycodone/ Acetaminophen (Percocet 5/325) 1 tab PRN Q6HRS PRN PO MODERATE TO SEVERE PAIN Last administered on 05/04/20at 22:44; Start 05/04/20 at 11:00 Ondansetron HCl (Zofran) 4 mg PRN Q6HRS PRN IVP NAUSEA/VOMITING; Start 05/04/20 at 11:15 Al Hydroxide/Mg Hydroxide (Mylanta Plus Xs) 30 ml PRN Q3HRS PRN PO HEARTBURN / GAS; Start 05/04/20 at 11:15 Calcium Carbonate/ Glycine (Tums) 500 mg PRN Q3HRS PRN PO UPSET STOMACH Last administered on 05/04/20at 13:20; Start 05/04/20 at 11:15 Morphine Sulfate (Morphine Sulfate) 2 mg PRN Q1HR PRN IV PAIN-SEE COMMENTS Last administered on 05/05/20at 03:27; Start 05/04/20 at 11:15 Acetaminophen (Tylenol) 650 mg PRN Q6HRS PRN PO Headaches, Temp > 101.5F; Start 05/04/20 at 11:15 Magnesium Hydroxide (Milk Of Magnesia) 2,400 mg PRN Q12HR PRN PO CONSTIPATION; Start 05/04/20 at 11:15 Bisacodyl (Dulcolax Supp) 10 mg PRN DAILY PRN SC CONSTIPATION; Start 05/04/20 at 11:15 Heparin Sodium (Porcine) (Heparin Sodium) 5,000 unit Q8HRS SQ Last administered on 05/05/20at 06:16; Start 05/04/20 at 12:00 Sacubitril/ Valsartan (Entresto 49 Mg-51 Mg) 1 tab BID PO Last administered on 05/05/20at 08:33; Start 05/04/20 at 21:00 Hydralazine HCl (Apresoline) 100 mg BID PO Last administered on 05/05/20at 08:34; Start 05/04/20 at 21:00 Polyethylene Glycol (miraLAX PACKET) 17 gm PRN DAILY PRN PO CONSTIPATION Last administered on 05/05/20at 10:58; Start 05/05/20 at 11:00 Active Scripts Active Cefpodoxime Proxetil 200 Mg Tablet 200 Mg PO BID 7 Days Reported Amlodipine Besylate 5 Mg Tablet 5 Mg PO DAILY Hydralazine Hcl 100 Mg Tablet 1 Tab PO BID Entresto 49 mg-51 mg Tablet (Sacubitril/Valsartan) 1 Each Tablet 1 Each PO BID Percocet 5-325 Mg Tablet (Oxycodone/Acetaminophen) 1 Each Tablet 1 Tab PO PRN Q6HRS PRN Multiple Vitamin (Multivitamin With Minerals) 1 Each Tablet 1 Each PO DAILY Labetalol Hcl 200 Mg Tablet 1 Tab PO BID Furosemide 40 Mg Tablet 1 Tab PO DAILY Aspirin 81 Mg Tab.chew 1 Tab PO DAILY Vitals/I & O Vital Sign - Last 24 Hours 05/04/20 05/04/20 05/04/20 05/04/20 14:35 15:28 16:28 19:40 Temp 97.7 97.7 Pulse 61 Resp 16 16 18 B/P (MAP) 140/78 (98) Pulse Ox 97 97 97 O2 Delivery Room Air Room Air Room Air 05/04/20 05/04/20 05/04/20 05/04/20 20:00 20:58 20:58 20:58 Pulse 72 72 72 B/P (MAP) 150/77 150/77 150/77 O2 Delivery Room Air 05/04/20 05/04/20 05/04/20 05/05/20 22:44 23:38 23:44 02:00 Temp 97.8 97.8 Pulse 80 Resp 21 B/P (MAP) 118/62 (80) Pulse Ox 97 97 97 O2 Delivery Room Air Room Air Room Air Room Air 05/05/20 05/05/20 05/05/20 05/05/20 03:27 03:42 03:57 07:00 Temp 97.7 98.0 97.7 98.0 Pulse 62 51 Resp 20 16 B/P (MAP) 129/78 (95) 140/80 (100) Pulse Ox 97 94 94 96 O2 Delivery Room Air Room Air Room Air Room Air 05/05/20 05/05/20 05/05/20 05/05/20 07:40 08:33 08:33 08:34 Pulse 62 62 62 B/P (MAP) 129/78 129/78 129/78 O2 Delivery Room Air 05/05/20 11:00 Temp 98.0 98.0 Pulse 71 Resp 18 B/P (MAP) 120/65 (83) Pulse Ox 92 O2 Delivery Room Air Intake and Output 05/04/20 05/04/20 05/05/20 15:00 23:00 07:00 Intake Total 600 ml Output Total 500 ml 1150 ml 200 ml Balance -500 ml -550 ml -200 ml Justifications for Admission Other Justification ONEIL MOSCOSO MD May 05, 2020 14:25
[2020-05-05 15:00] VITALS: BP 134/78
[2020-05-05] MEDS ORDERED: ATOR20TA58 PO (15:18)
--- NOTE | 2020-05-05 15:22 | PDOC3 ---
Discharge Summary Visit Information Date of Admission: May 04, 2020 Date of Discharge: May 05, 2020 Admitting Diagnosis: Chest pain, acute chf exacerbation Final Diagnosis Acute CHF, left supraspinatus strain Brief Hospital Course Allergies Allergies Coded Allergies Type Severity Reaction Last Updated Verified No Known Drug Allergies 05/13/13 No Vital Signs Vital Signs Date Time Temp Pulse Resp B/P (MAP) Pulse Ox O2 Delivery O2 Flow Rate FiO2 05/05/20 11:00 98.0 71 18 120/65 (83) 92 Room Air 98.0 Lab Results Laboratory Tests Test 05/04/20 07:30 05/04/20 09:10 05/04/20 09:20 05/04/20 14:10 White Blood Count 5.3 x10^3/uL (4.0-11.0) Red Blood Count 4.56 x10^6/uL (4.30-5.70) Hemoglobin 12.7 g/dL (13.0-17.5) Hematocrit 38.4 % (39.0-53.0) Mean Corpuscular Volume 84 fL (79-100) Mean Corpuscular Hemoglobin 28 pg (25-35) Mean Corpuscular Hemoglobin Concent 33 g/dL (31-37) Red Cell Distribution Width 14.7 % (11.5-14.5) Platelet Count 234 x10^3/uL (140-400) Neutrophils (%) (Auto) 75 % (31-73) Lymphocytes (%) (Auto) 13 % (24-48) Monocytes (%) (Auto) 9 % (0-9) Eosinophils (%) (Auto) 2 % (0-3) Basophils (%) (Auto) 1 % (0-3) Neutrophils # (Auto) 4.0 x10^3/uL (1.8-7.7) Lymphocytes # (Auto) 0.7 x10^3/uL (1.0-4.8) Monocytes # (Auto) 0.5 x10^3/uL (0.0-1.1) Eosinophils # (Auto) 0.1 x10^3/uL (0.0-0.7) Basophils # (Auto) 0.0 x10^3/uL (0.0-0.2) Prothrombin Time 14.3 SEC (11.7-14.0) Prothromb Time International Ratio 1.1 (0.8-1.1) Activated Partial Thromboplast Time 36 SEC (24-38) D-Dimer (Sarahi) < 0.27 ug/mlFEU Sodium Level 143 mmol/L (136-145) Potassium Level 3.8 mmol/L (3.5-5.1) Chloride Level 109 mmol/L (98-107) Carbon Dioxide Level 23 mmol/L (21-32) Anion Gap 11 (6-14) Blood Urea Nitrogen 10 mg/dL (8-26) Creatinine 1.0 mg/dL (0.7-1.3) Estimated GFR (Cockcroft-Gault) 82.3 Glucose Level 98 mg/dL (70-99) Calcium Level 8.8 mg/dL (8.5-10.1) Total Bilirubin 0.6 mg/dL (0.2-1.0) Direct Bilirubin 0.1 mg/dL (0.0-0.2) Aspartate Amino Transf (AST/SGOT) 8 U/L (15-37) Alanine Aminotransferase (ALT/SGPT) 10 U/L (16-63) Alkaline Phosphatase 56 U/L (46-116) Troponin I Quantitative < 0.017 ng/mL (0.000-0.055) < 0.017 ng/mL (0.000-0.055) YX-Ujw-A-Type Natriuretic Peptide 228 pg/mL (0-124) Total Protein 6.6 g/dL (6.4-8.2) Albumin 3.4 g/dL (3.4-5.0) Lipase 47 U/L (73-393) Procalcitonin < 0.10 ng/mL (0.00-0.10) Urine Collection Type Unknown Urine Color Yellow Urine Clarity Clear Urine pH 8.0 (<5.0-8.0) Urine Specific [place] 1.015 (1.000-1.030) Urine Protein Negative mg/dL (NEG-TRACE) Urine Glucose (UA) Negative mg/dL (NEG) Urine Ketones (Stick) Negative mg/dL (NEG) Urine Blood Negative (NEG) Urine Nitrite Negative (NEG) Urine Bilirubin Negative (NEG) Urine Urobilinogen Dipstick 0.2 mg/dL (0.2 mg/dL) Urine Leukocyte Esterase Negative (NEG) Urine RBC Occ /HPF (0-2) Urine WBC Rare /HPF (0-4) Urine Squamous Epithelial Cells Few /LPF Urine Bacteria 0 /HPF (0-FEW) Urine Mucus Slight /LPF Coronavirus (PCR) Not detected (Not Detected) Test 05/04/20 17:23 05/05/20 09:30 Troponin I Quantitative < 0.017 ng/mL (0.000-0.055) White Blood Count 5.2 x10^3/uL (4.0-11.0) Red Blood Count 4.60 x10^6/uL (4.30-5.70) Hemoglobin 12.8 g/dL (13.0-17.5) Hematocrit 38.9 % (39.0-53.0) Mean Corpuscular Volume 85 fL (79-100) Mean Corpuscular Hemoglobin 28 pg (25-35) Mean Corpuscular Hemoglobin Concent 33 g/dL (31-37) Red Cell Distribution Width 15.0 % (11.5-14.5) Platelet Count 231 x10^3/uL (140-400) Neutrophils (%) (Auto) 72 % (31-73) Lymphocytes (%) (Auto) 14 % (24-48) Monocytes (%) (Auto) 11 % (0-9) Eosinophils (%) (Auto) 2 % (0-3) Basophils (%) (Auto) 1 % (0-3) Neutrophils # (Auto) 3.7 x10^3/uL (1.8-7.7) Lymphocytes # (Auto) 0.7 x10^3/uL (1.0-4.8) Monocytes # (Auto) 0.6 x10^3/uL (0.0-1.1) Eosinophils # (Auto) 0.1 x10^3/uL (0.0-0.7) Basophils # (Auto) 0.0 x10^3/uL (0.0-0.2) Sodium Level 141 mmol/L (136-145) Potassium Level 3.7 mmol/L (3.5-5.1) Chloride Level 106 mmol/L (98-107) Carbon Dioxide Level 26 mmol/L (21-32) Anion Gap 9 (6-14) Blood Urea Nitrogen 10 mg/dL (8-26) Creatinine 0.9 mg/dL (0.7-1.3) Estimated GFR (Cockcroft-Gault) 93.0 Glucose Level 114 mg/dL (70-99) Calcium Level 8.6 mg/dL (8.5-10.1) Triglycerides Level 88 mg/dL (0-150) Cholesterol Level 177 mg/dL (0-200) LDL Cholesterol, Calculated 130 mg/dL (0-100) VLDL Cholesterol, Calculated 18 mg/dL (0-40) Non-HDL Cholesterol Calculated 148 mg/dL (0-129) HDL Cholesterol 29 mg/dL (40-60) Cholesterol/HDL Ratio 6.1 Laboratory Tests Test 05/04/20 17:23 05/05/20 09:30 Troponin I Quantitative < 0.017 ng/mL (0.000-0.055) White Blood Count 5.2 x10^3/uL (4.0-11.0) Red Blood Count 4.60 x10^6/uL (4.30-5.70) Hemoglobin 12.8 g/dL (13.0-17.5) Hematocrit 38.9 % (39.0-53.0) Mean Corpuscular Volume 85 fL (79-100) Mean Corpuscular Hemoglobin 28 pg (25-35) Mean Corpuscular Hemoglobin Concent 33 g/dL (31-37) Red Cell Distribution Width 15.0 % (11.5-14.5) Platelet Count 231 x10^3/uL (140-400) Neutrophils (%) (Auto) 72 % (31-73) Lymphocytes (%) (Auto) 14 % (24-48) Monocytes (%) (Auto) 11 % (0-9) Eosinophils (%) (Auto) 2 % (0-3) Basophils (%) (Auto) 1 % (0-3) Neutrophils # (Auto) 3.7 x10^3/uL (1.8-7.7) Lymphocytes # (Auto) 0.7 x10^3/uL (1.0-4.8) Monocytes # (Auto) 0.6 x10^3/uL (0.0-1.1) Eosinophils # (Auto) 0.1 x10^3/uL (0.0-0.7) Basophils # (Auto) 0.0 x10^3/uL (0.0-0.2) Sodium Level 141 mmol/L (136-145) Potassium Level 3.7 mmol/L (3.5-5.1) Chloride Level 106 mmol/L (98-107) Carbon Dioxide Level 26 mmol/L (21-32) Anion Gap 9 (6-14) Blood Urea Nitrogen 10 mg/dL (8-26) Creatinine 0.9 mg/dL (0.7-1.3) Estimated GFR (Cockcroft-Gault) 93.0 Glucose Level 114 mg/dL (70-99) Calcium Level 8.6 mg/dL (8.5-10.1) Triglycerides Level 88 mg/dL (0-150) Cholesterol Level 177 mg/dL (0-200) LDL Cholesterol, Calculated 130 mg/dL (0-100) VLDL Cholesterol, Calculated 18 mg/dL (0-40) Non-HDL Cholesterol Calculated 148 mg/dL (0-129) HDL Cholesterol 29 mg/dL (40-60) Cholesterol/HDL Ratio 6.1 Brief Hospital Course Mr Enrique is a 39 yo M with substernal that started 05/03/20. Pain is sharp and shooting. It does radiate to his back. It comes and goes. Without alleviating or exacerbating factors. He has a history of heart failure and is on Lasix and has medications for blood pressure. He reports having a heart cath 2018 reportedly "normal". He denies unilateral leg swelling hemoptysis recent surgery or immobilization. He denies history of DVT or PE. He does not have a family history of heart disease. Review of systems negative for abdominal pain vomiting diaphoresis fevers chills. He denies cough. Negative for nuchal rigidity or headache. All other review of systems negative. EKG sinus rhythm with a regular rate. ST segments congruent. Chest x-ray shows mid and bibasilar opacities likely atelectasis versus early infiltrates or a viral pneumonia. CBC shows a normal white blood cell count. Hemoglobin 12.7. Troponin within normal limits. Procalcitonin within normal limits. D-dimer within normal limits. Urine analysis unremarkable. proBNP is minimally elevated at 228. Given IV diuretics and admitted for further care Overnight no events. Covid test negative. He does note he was just started on amlodipine 2 days prior to this visit and he has been carrying 6-12 enriquez boxes, at the [employer] where he works, on his left shoulder. On examination he does exhibit signs and symptoms of left supraspinatus strain. I recommended that he take the next 5 days off work and see cardiology as is planned on 05/09/2020 and to continue his new dose of amlodipine and continue to check his blood pressure daily at home. He will continue to take his furosemide at home notes he has been not taking it while he is in the [place] with the [place]. Problem list: Unstable angina Acute diastolic CHF Obesity Abnormal chest radiograph HTN HLD - LDL noted 130mg/dL Consults: Cardiology Greater than 30 minutes spent on d/c home with self care. Discharge Information Condition at Discharge: Improved Follow Up: Weeks (1) Disposition/Orders: D/C to Home Scheduled Amlodipine Besylate (Amlodipine Besylate) 5 Mg Tablet, 5 MG PO DAILY for htn, (Reported) Entered as Reported by: SALTY LAWRENCE on 05/04/201806 Last Taken: Unknown Dose on 05/04/20 Last Action: New Order on 05/04/201806 by SALTY LAWRENCE Aspirin (Aspirin) 81 Mg Tab.chew, 1 TAB PO DAILY for prophylaxis, #30 Ref 3 (Reported) Entered as Reported by: MARYSE CRUZ on 11/08/17658 Last Taken: Unknown Dose on 05/04/20 Last Action: Last Taken Edited on 05/04/201806 by SALTY LAWRENCE Atorvastatin Calcium (Atorvastatin Calcium) 20 Mg Tablet, 20 MG PO QHS for HLD/CHF for 90 Days, #90 Ref 1 Prescribed by: PATTI SPRAGUE MD on 05/05/20 1518 Furosemide (Furosemide) 40 Mg Tablet, 1 TAB PO DAILY for diuretic, #30 Ref 5 (Reported) Entered as Reported by: MARYSE CRUZ on 11/08/17658 Last Action: Continued on 05/04/20 1059 by GIOVANNI ROTH MD Hydralazine Hcl (Hydralazine Hcl) 100 Mg Tablet, 1 TAB PO BID for htn, #90 Ref 5 (Reported) Entered as Reported by: SALTY LAWRENCE on 05/04/201806 Last Taken: Unknown Dose on 05/04/20 Last Action: Converted on 05/04/201827 by SALTY LAWRENCE Labetalol Hcl (Labetalol Hcl) 200 Mg Tablet, 1 TAB PO BID for hypertension, #60 Ref 5 (Reported) Entered as Reported by: MARYSE CRUZ on 11/08/17 0659 Last Taken: Unknown Dose on 05/04/20 Last Action: Last Taken Edited on 05/04/201806 by SALTY LAWRENCE Multivitamin With Minerals (Multiple Vitamin) 1 Each Tablet, 1 EACH PO DAILY for supplement, (Reported) Entered as Reported by: ROMULO MONTES DE OCA on 05/23/181509 Last Action: HELD on 05/04/20 105 by GIOVANNI ROTH MD Sacubitril/Valsartan (Entresto 49 mg-51 mg Tablet) 1 Each Tablet, 1 EACH PO BID for heart failure, (Reported) Entered as Reported by: SALTY LAWRENCE on 05/04/201806 Last Taken: Unknown Dose on 05/04/20 Last Action: Continued on 05/04/201827 by SALTY LAWRENCE Scheduled PRN Oxycodone/Apap 5-325 (Percocet 5-325 Mg Tablet ) 1 Each Tablet, 1 TAB PO PRN Q6HRS PRN for PAIN, Ref 0 (Reported) Entered as Reported by: Mercedes Lou on 05/29/18 0234 Last Action: Continued on 05/04/20 105 by GIOVANNI ROTH MD Discontinued Medications Cefpodoxime Proxetil (Cefpodoxime Proxetil) 200 Mg Tablet, 200 MG PO BID for uti for 7 Days, #14 Prescribed by: ANTHONY OLIVA on 05/30/18 1010 Last Action: HELD on 05/04/20 105 by GIOVANNI ROTH MD Lisinopril (Lisinopril) 40 Mg Tablet, 1 TAB PO DAILY for hypertension, #30 Ref 5 (Reported) Discontinued Reason: DC'D Entered as Reported by: ROMULO MONTES DE OCA on 05/23/181509 Last Action: Discontinued on 05/04/201840 by MARLENE [facility] Justicifation of Admission Dx: Justifications for Admission: Justification of Admission Dx: Yes Hypertension: Cresendo Worsening of Sym PATTI SPRAGUE MD May 05, 2020 15:22
--- NOTE | 2020-05-05 15:49 | NUR ---
Pt alert and oriented throughout shift. Pt with some minor discomfort is left shoulder. No chest pain throughout shift. Pt tolerated IV removal. Catheter tip intact, pressure applied, bleeding stopped bandage applied. Pt has follow up with Dr. Mcdonough on . Pt educated on time next medications are due, educated on starting statin. Pt denied questions. Pt wheeled out to fathers vehicle by RN.
[2020-05-05] MEDS ORDERED: ATORVASTATIN CALCIUM 20 MG TABLET PO SCH (21:00)
--- NOTE | 2020-05-06 10:16 | EKG ---
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
== END 2020-05-05 16:30 | disposition home or self-care (01) | DRG 291 ==
LOC: ER 07:13 → ED HOLD 08:32 → OBSVTOIN 11:08 → 2 SOUTH 14:20
PROVIDERS: ADMIT Family Medicine; ATTEND Family Medicine
DX: I11.0 Hypertensive heart disease with heart failure (principal); I50.31 Acute diastolic (congestive) heart failure; Z68.42 Body mass index [BMI] 45.0-49.9, adult; R07.89 Other chest pain; I20.0 Unstable angina; E78.00 Pure hypercholesterolemia, unspecified; E66.9 Obesity, unspecified; Z20.822 Contact with and (suspected) exposure to COVID-19; E78.5 Hyperlipidemia, unspecified; Z87.442 Personal history of urinary calculi; Z87.891 Personal history of nicotine dependence; Z82.49 Family history of ischemic heart disease and other diseases of the circulatory system
CPT/HCPCS: 36415; 71045; 80048; 80061; 80076; 81001; 83690; 83880; 84145; 84484; 85025; 85379; 85610; 85730; 93005; 96374; 96375; 99285; G0378; G0379; J1644; J1940; J2270; J3010; U0003

== ENCOUNTER → 2020-07-17 | Outpatient (CLI) | payer BC ==
[~2020-07-17] MED LIST changes: +AMLO-186 PO; +ATOR20TA58 PO; +HYDR100T24 PO; -LISI-334 PO; +LISI20TA18 PO; +SACU1TAB7 PO
--- NOTE | 2020-07-17 13:45 | RAD ---
EXAMINATION: US BILATERAL LOWEREXTREMITY VENOUS DOPPLER (LOWER EXTREMITY VENOUS ULTRASOUND) CLINICAL HISTORY: Post-Op Bilat Venaseal GSV ablation; check for DVT. History of Bilateral Venous Ins ufficiency TECHNIQUE: Sonographic grayscale images obtained of the bilateral lower extremity deep venous systems with color flow Doppler, compression, and augmentation techniques as indicated. Images obtained and stored in a permanent archive. COMPARISON: 02/13/2020 FINDINGS: RIGHT: Changes related to greater saphenous vein ablation. No evidence of absent flow or incompressibility within the common femoral vein, femoral vein, or popl iteal vein. Visualized calf veins appear patent on limited evaluation. LEFT: Changes related to greater saphenous vein ablation. No evidence of absent flow or incompressibility within the common femoral vein, femoral vein, or popl iteal vein. Visualized calf veins appear patent on limited evaluation. IMPRESSION: No evidence of bilateral lower extremity DVT. Bilateral greater saphenous vein ablation. Electronically signed by: Garett Kamara DO (07/17/2020 1:42 PM) [id number]
== END ==
LOC: US 10:38
PROVIDERS: ATTEND Internal Medicine Cardiovascular Disease
DX: I87.2 Venous insufficiency (chronic) (peripheral) (principal)
CPT/HCPCS: 93970